=== PATIENT | female | born 1935 | race Hispanic/Latino ===

== ENCOUNTER 2019-01-25 10:38 | Observation (INO) | payer MEDICARE ==
[~2019-01-25] VITALS: Ht 157.5 cm; Wt 68.1 kg
--- OUTSIDE RECORDS SUMMARY | 2019-01-25 10:40 | XMS REPORT | Clinical Summary ---
Author Author [facility] Organization [facility] Address Unknown Phone Unavailable Care Team Providers Care Aluminum Welder Name Role Phone Ren Blanca MD PCP Allergies Comments Active Allergy Reactions Severity Noted Date Iodine 11/20/2015 Iodine And Iodide Swelling 01/16/2016 Containing Products Medications End Date Status Medication Sig Dispensed Refills Start Date Active olmesartan (BENICAR) 40 Take 40 mg by 0 MG tablet mouth daily. Active multivitamin (THERAGRAN) Take 1 tablet 0 tablet by mouth daily. Active simvastatin (ZOCOR) 20 MG Take 20 mg by 0 tablet mouth nightly. Active iwbcciwm-nghqflwer-IG Administer 3 10 mL 0 (CORTISPORIN) otic drops into 6 solutionIndications: both ears 4 Otalgia of both ears (four) times a day. Active ciprofloxacin HCl (CIPRO) Take 500 mg 0 500 MG tablet by mouth 2 (two) times a day. Active escitalopram (LEXAPRO) 10 TAKE ONE 30 tablet 0 MG tablet TABLET BY 6 MOUTH ONE TIME DAILY Active insulin lispro INJECT BY 9 mL 1 protamin-lispro (HumaLOG SUBCUTANEOUS 6 Mix 75-25 KwikPen) 100 ROUTE 15 unit/mL (75-25) insulin UNITS IN THE penIndications: Type 2 MORNING AND diabetes mellitus with 10 UNITS AT B hyperglycemia (HCC) ED TIME Active BD ULTRA-FINE GWEN PEN Use twice a 100 each 5 NEEDLES 32 gauge x 32" day 6 needle Active Problems Problem Noted Date Urinary retention 12/05/2015 CKD (chronic kidney disease) stage 3, GFR 30-59 ml/min 12/05/2015 Overview: 10/01 Cr 1.2, GF 42 Diabetes mellitus 11/20/2015 Vitamin D deficiency 11/20/2015 Overview: Vit D 16 Hyperlipidemia 11/20/2015 Depressive disorder 11/20/2015 Neuropathy 11/20/2015 Overview: feet Cataract 11/20/2015 Overview: Eye center [facility] Vitreous hemorrhage 11/20/2015 Overview: left eye Essential hypertension 11/20/2015 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, Nuclear stress test 01/28 wnl Osteopenia 11/20/2015 Overview: 11/19/14 DEXA : - 1.5 ( FU 2 yrs) Heart murmur 11/20/2015 Overview: mild on ECHO 01/28 Urinary incontinence 11/20/2015 Chronic UTI 11/20/2015 Otalgia of both ears 11/20/2015 Gait instability 11/20/2015 Immunizations Name Dates Previously Given Next Due Influenza, Unspecified 05/23/2015 Pneumococcal Conjugate 05/23/2015 13-Valent Pneumococcal, Unspecified 09/17/1999 Family History Medical History Relation Name Comments Diabetes Father Coronary artery disease Mother Hypertension Mother Relation Name Status Comments Father Mother Social History Date Tobacco Use Types Packs/Day Years Used Never Smoker Alcohol Use Drinks/Week oz/Week Comments No Sex Assigned at Date Recorded Not on file Industry Job Start Date Occupation Not on file Not on file Not on file Travel End Travel History Travel Start No recent travel history available. Last Filed Vital Signs Not on file Plan of Treatment Health Maintenance Due Date Last Done Comments DXA SCAN 1935 SHINGLES VACCINES (#1) 1985 65+ PNEUMOCOCCAL VACCINE 05/23/2016 05/23/2015, 09/17/1999 (2 of 2 - PPSV23) DIABETIC FOOT EXAM 11/19/2016 11/20/2015 DIABETIC RETINAL EYE EXAM 04/16/2017 04/16/2015 INFLUENZA VACCINE 03/16/2019 05/23/2015, 05/23/2015 Results Not on fileafter 01/24/2018 Insurance Type Payer Benefit Subscriber ID Effective Phone Address Plan / Dates Group Medicare MEDICARE MEDICARE xxxxxxxxxx 2000- JAS[place], PART A AND Present [place] B HMO AETNA AETNA xxxxxxxxxx 2005- HMO,POS,EP Present O, [facility] Advance Directives Patient has advance care planning documents on file. For more information, nathan [email or web address] contact: Eren Short [phone] [place] [address]
--- OUTSIDE RECORDS SUMMARY | 2019-01-25 10:40 | XMS REPORT | Clinical Summary ---
Author Author B[facility] Organization [facility] Address Unknown Phone Unavailable Care Team Providers Care Polystyrene Molding Machine Tender Name Role Phone Yazan Garay MD PCP Allergies Comments Active Allergy Reactions Severity Noted Date Ciprofloxacin 10/30/2017 Iodine And Iodide Swelling 12/04/2015 Containing Products Medications End Date Status Medication Sig Dispensed Refills Start Date Active olmesartan (BENICAR) 20 Take 20 mg by 0 MG tablet mouth daily. Active escitalopram oxalate Take 10 mg by 0 (LEXAPRO) 10 MG tablet mouth daily. Active insulin lispro (HUMALOG) Inject 0 100 unit/mL injection subcutaneousl y 3 (three) times daily before meals. Active amLODIPine (NORVASC) 2.5 Take 2.5 mg 0 MG tablet by mouth daily. Active atorvastatin (LIPITOR) 10 Take 10 mg by 0 MG tablet mouth daily. Active Problems Not on file Social History Date Tobacco Use Types Packs/Day [...] Health Maintenance Due Date Last Done Comments INFLUENZA VACCINE 05/16/2018 Results Not on fileafter 01/24/2018 Insurance Payer Benefit Subscriber ID Type Phone Address Plan / Group MEDICARE MEDICARE A xxxxxxxxxx Medicare B HUMANA - MEDICARE MGD HUMANA xxxxxxxxx [facility] MEDICARE Contracted ADV MEDICAID MEDICAID xxxxxxxxx Medicaid OF [place]
--- OUTSIDE RECORDS SUMMARY | 2019-01-25 10:41 | XMS REPORT | Continuity of Care Document ---
Author Author [facility] Organization Interface Address Unknown Phone Unavailable Problems Problem Status Onset Date Classification Date Reported Comments Source DX: R33.9=RETENTION OF URINE, UNSPECIFIE Active 12/31/2016 [facility] Discharge Diagnosis: Acute urinary retention 10/02/2016 10/05/2016 [facility] URINARY SYMPTOMS Active 10/02/2016 [facility] URINARY SYMPTOMS Active 10/02/2016 [facility] Discharge Diagnosis: Acute lower urinary tract infection 09/29/2016 10/02/2016 [facility] LOWER PAIN Active 09/29/2016 [facility] LOWER PAIN Active 09/29/2016 [facility] UNABLE TO URINE/PAIN IN ANUS Active 09/24/2016 [facility] UNABLE TO URINE/PAIN IN ANUS Active 09/24/2016 [facility] Discharge Diagnosis: Accidental fall 05/22/2016 05/25/2016 [facility] Discharge Diagnosis: Broken rib 05/22/2016 05/25/2016 [facility] Discharge Diagnosis: Broken clavicle 05/22/2016 05/25/2016 [facility] SHOULDER PAIN Active 05/22/2016 [facility] Z12.31 - ENCNTR SCREEN MAMMOGRAM FOR MS Active 05/13/2016 [facility] [place] UROSEPSIS Active 12/21/2011 [facility] UROSEPSIS, CYSTITIS Active 12/21/2011 [facility] ABD PAIN Active 12/21/2011 [facility] HTN - Hypertension Inactive Problem 12/26/2011 [facility] OA - Osteoarthritis Active Problem 12/26/2011 [facility] 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 Active Problem 09/17/2012 [facility] [place] Depression Active Problem 09/17/2012 [facility] [place] Diabetes mellitus Active Problem 09/17/2012 [facility] [place] HTN - Hypertension Inactive Problem 09/17/2012 [facility] [place] OA - Osteoarthritis Active Problem 09/17/2012 [facility] [place] 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 Active Problem 10/21/2018 [facility] [place] Depression Active Problem 10/21/2018 [facility] Diabetes mellitus Active Problem 10/21/2018 [facility] OA - Osteoarthritis Active Problem 10/21/2018 [facility] HTN (<span ID="[id number]</span>) Active Problem 10/21/2018 [facility] UTI (<span ID="[id number]">Confirmed</span>) Active Problem 10/21/2018 [facility] Diabetes Active Problem 01/03/2017 [facility] CYSTITIS NOS Active [facility] 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 [facility] Medications Medication Details Route Status Patient Instructions Ordering Provider Order Date Source Levofloxacin 500 MG Oral Tablet [Levaquin] 500 mg=1 tab, PO, Q24H, X 7 day, # 7 tab, 0 Refill(s) Active 09/29/2016 [facility] Levaquin 500 mg, 100 mL, Route: IVPB, Drug form: SOLN, ONCE, Dosing Weight 60, kg, Start date: 09/29/16 9:08: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, Stop date: 09/29/16 9:08:00 CSTNotes: (Same as:Levaquin) Inactive 09/29/2016 [facility] tramadol hydrochloride 50 MG Oral Tablet [Ultram] 1 - 2 tabs, PO, Q4-6H, PRN as needed for pain, # 16 tab, 0 Refill(s) No Longer Active 09/24/2016 [facility] nitrofurantoin macrocrystals 100 mg oral capsule (Macrodantin) 100 mg=1 cap, PO, Q8H, X 7 day, # 21 cap, 0 Refill(s) Active 09/24/2016 [facility] Saline Flush 0.9% 10 mL, Route: IVP, Drug Form: INJ, Dosing Weight 59.545, kg, PRN, PRN Line Flush, Start date: 09/24/16 6:06: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, Duration: 30 day, Stop date: 10/24/16 6:05:00 CSTNotes: (Same as: BD Posiflush) Inactive 09/24/2016 [facility] tramadol hydrochloride 50 MG Oral Tablet [Ultram] 50 mg=1 tab, PO, Q4H, PRN pain, X 5 day, # 30 tab, 0 Refill(s) Active 05/22/2016 [facility] Cipro 250 mg oral tablet 250 mg, 1 tab, PO, Q12H, 14 tab, Substitution Allowed PO Active [facility] 12/24/2011 [facility] Pyridium 100 mg oral tablet 100 mg, 1 tab, PO, TID, 21 tab, Substitution Allowed, TAB PO Active [facility] 12/24/2011 [facility] NovoLog Mix 70/30 FlexPen 20 unit, 0.2 mL, Route: SUB-Q, Drug form: INJ, BID-Before Meals, Start date: 12/23/11 16:30:00, Duration: 30 day, Stop date: 01/22/12 7:30:00 SUB-Q No Longer Active [facility] 12/23/2011 [facility] insulin isophane-insulin regular 70/30 20 unit, Route: SUB-Q, Drug form: SUSP, BID-Before Meals, Start date: 12/23/11 16:30:00, Duration: 30 day, Stop date: 01/22/12 7:30:00 SUB-Q No Longer Active [facility] 12/23/2011 [facility] Pyridium 100 mg, 1 tab, Route: PO, Drug form: TAB, TID, Start date: 12/23/11 13:00:00, Duration: 30 day, Stop date: 01/22/12 9:00:00 PO No Longer Active [facility] 12/23/2011 [facility] Benicar 20 mg, 1 tab, Route: PO, Drug form: TAB, Daily, Start date: 12/23/11 9:00:00, Duration: 30 day, Stop date: 01/21/12 9:00:00 PO No Longer Active [facility] 12/23/2011 [facility] Lexapro 10 mg, 1 tab, Route: PO, Drug form: TAB, Daily, Start date: 12/23/11 9:00:00, Duration: 30 day, Stop date: 01/21/12 9:00:00 PO No Longer Active [facility] 12/23/2011 [facility] Lipitor 80 mg, 2 tab, Route: PO, Drug form: TAB, Bedtime, Start date: 12/22/11 21:00:00, Duration: 30 day, Stop date: 01/20/12 21:00:00 PO No Longer Active [facility] 12/23/2011 [facility] cefepime 1 gm, Route: IVPB, [id number], Start date: 12/22/11 13:00:00, Duration: 30 day, Stop date: 01/21/12 1:00:00 IVPB No Longer Active [facility] 12/22/2011 [facility] Dextrose 50% Syringe 12.5 gm, 25 mL, Route: IVP, Drug Form: INJ, PRN, PRN Blood Glucose Results, Start date: 12/22/11 9:53:00, Duration: 30 day, Stop date: 01/21/12 9:52:00 IVP No Longer Active [facility] 12/22/2011 [facility] glucagon 1 mg, Route: IM, Drug form: PDR/INJ, PRN, PRN Blood Glucose Results, Start date: 12/22/11 9:53:00, Duration: 30 day, Stop date: 01/21/12 9:52:00 IM No Longer Active [facility] 12/22/2011 [facility] insulin aspart 2 unit, 0.02 mL, Route: SUB-Q, Drug form: SOLN, Bedtime, PRN Blood Glucose Results, Start date: 12/22/11 9:53:00, Duration: 30 day, Stop date: 01/21/12 9:52:00 SUB-Q No Longer Active [facility] 12/22/2011 [facility] normal saline 0.9% IV 1,000 mL 1,000 mL, Rate: 100 ml/hr, Infuse over: 10 hr, Route: IV, Dosing Weight 75 kg, Total Volume: 1,000, Start date: 12/22/11 7:24:00, Duration: 30 day, Stop date: 01/21/12 7:23:00 IV No Longer Active [facility] 12/22/2011 [facility] atropine 0.5 mg, 5 mL, Route: IVP, Drug form: INJ, PRN, PRN Bradycardia, Start date: 12/22/11 4:37:00, Duration: 30 day, Stop date: 01/21/12 4:36:00 IVP No Longer Active [facility] 12/22/2011 [facility] nitroglycerin 0.4 mg sublingual tablet 0.4 mg, 1 tab, Route: SL, Drug form: TAB, Q5Min, PRN Chest Pain, Start date: 12/22/11 4:37:00, Duration: 30 day, Stop date: 01/21/12 4:36:00 SL No Longer Active [facility] 12/22/2011 [facility] Dextrose 50% Syringe 12.5 gm, 25 mL, Route: IVP, Drug Form: INJ, PRN, PRN Blood Glucose Results, Start date: 12/22/11 4:09:00, Duration: 30 day, Stop date: 01/21/12 4:08:00 IVP No Longer Active [facility] 12/22/2011 [facility] glucagon 1 mg, Route: IM, Drug form: PDR/INJ, PRN, PRN Blood Glucose Results, Start date: 12/22/11 4:09:00, Duration: 30 day, Stop date: 01/21/12 4:08:00 IM No Longer Active [facility] 12/22/2011 [facility] cefepime 1 gm, Route: IVPB, ONCE, Priority: STAT, Start date: 12/21/11 23:07:00, Stop date: 12/21/11 23:07:00 IVPB No Longer Active Nriagu 12/22/2011 [facility] influenza virus vaccine, inactivated 0.5 ml, Route: IM, Drug form: INJ, Start date: 08/24/06 9:00:00, Stop date: 08/24/06 9:00:00 IM No Longer Active Vaduganathan 08/24/2006 [facility] [place] Allergies, Adverse Reactions, Alerts Substance Category Reaction Severity Reaction type Status Date Reported Comments Source Diflucan drug allergy Allergy Active [facility] [place] iodine topical drug allergy Allergy Active [facility] [place] Rocephin drug allergy Allergy Active [facility] [place] sulfa drugs drug allergy Allergy Active [facility] [place] Immunizations Immunization Date Given Site Status Last Updated Comments Source influenza virus vaccine, inactivated 08/24/2006 completed [facility] [place] influenza virus vaccine, inactivated 08/24/2006 Right deltoid completed [facility] Results Order Name Results Value Reference Range Date Interpretation Comments Source Chest 2 views DX Chest 2 views DX XR CHEST 2 VIEWS HISTORY: - r05 cough COMPARISON: None. FINDINGS: The lungs are clear. The heart and vascular markings are normal. No pleural abnormality. The bones are intact. Mild atheromatous calcification within the aorta. Prior sternotomy. IMPRESSION: No active process. SL: [id number] 10/18/2018 - - Read by: Josh Sepulveda MD Dictated Date/time: 10/18/18 14:14 Electronically Signed by: Josh Sepulveda MD 10/18/18 14:15 FINAL REPORT [facility] [place] Abdomen/Pelvis wo IV contrast CT Abdomen/Pelvis wo IV contrast CT Patient Name: CHESTER ALATORRE FELIX : 1935; Age: 81 years y/o Female MR: [id number] * I. COMPUTED TOMOGRAPHY SCAN OF THE ABDOMEN without contrast. * II. COMPUTED TOMOGRAPHY SCAN OF THE PELVIS without contrast HISTORY: Retention of urine - COMPARISON: 06/22/2007 * TECHNIQUE: I. COMPUTED TOMOGRAPHY SCAN OF THE ABDOMEN without contrast: Helical CT images were obtained on a multidetector computed tomography from the domes the diaphragms to the iliac crests. Neither oral or intravenous contrast was administered. II. COMPUTED TOMOGRAPHY SCAN OF THE PELVIS without contrast: Helical CT images were obtained on a multidetector computed tomography from the iliac crests to the pubic symphysis. Neither oral or intravenous contrast was administered. Coronal and sagittal reconstructions were obtained. CT radiation dose DLP: 741 mGy-cm FINDINGS: There is no free intraperitoneal gas, intra-abdominal abscess, ascites, or other fluid collection. The liver, spleen, pancreas, and adrenal glands are normal in appearance. The kidneys are normal in size without hydronephrosis. No calculi are seen. No focal lesions are seen involving the kidneys on this limited noncontrast study. Evaluation of the solid organs is limited due to lack of intravenous contrast. There is moderate sigmoid diverticulosis without evidence of diverticulitis. The gastrointestinal structures are otherwise unremarkable. There is no evidence of obstruction or ileus. The appendix is not definitely demonstrated. 2 small densities are noted adjacent to the cecum, slightly related to a prior appendectomy. Please correlate with surgical history. There is no evidence of appendicitis. Evaluation of the gastrointestinal structures is limited due to lack of oral contrast. No mass or adenopathy is seen within the abdomen or pelvis. There is no ascites or other fluid collection. Extensive atherosclerotic calcifications involving the abdominal aorta and iliac arteries. The aorta is normal in caliber. The uterus is not visualized. Presumably, the patient has had a prior hysterectomy. There is a Ibanez catheter within the urinary bladder. The bladder is decompressed. The visualized lung bases are clear. There is mild scarring in the lingula. There are no pleural effusions. The heart is normal in size. There is no pericardial effusion. There are extensive coronary artery calcifications. There are poststernotomy changes. There are mild scattered degenerative changes involving the visualized spine. There are old healed left rib fractures. The osseous structures are otherwise unremarkable. No blastic or destructive lesions are seen. IMPRESSION: 1. No evidence of an acute intra-abdominal process. 2. Moderate sigmoid diverticulosis without evidence of diverticulitis. 3. The appendix is not visualized. Small densities are noted adjacent the cecum, possibly related to a prior appendectomy. Please correlate with surgical history. 4. Atherosclerosis including coronary artery calcifications. 5. Poststernotomy changes. 6. Ibanez catheter within the urinary bladder. The bladder is decompressed. SL: [id number] 12/31/2016 - - Read by: Antwon Guido MD Dictated Date/time: 12/31/16 15:37 Electronically Signed by: Antwon Guido MD 12/31/16 15:49 FINAL REPORT [facility] URINE AND STOOL UA Leuk Est Small *ABN* (10/02/16 2:50 PM) Negative 10/02/2016 [facility] URINE AND STOOL UA WBC 6-10 /HPF None Seen /HPF 10/02/2016 [facility] URINE AND STOOL UA RBC 0-2 /HPF 0 - 2 10/02/2016 [facility] URINE AND STOOL UA Bacteria Occasional /HPF None Seen /HPF 10/02/2016 [facility] URINE AND STOOL UA Color Yellow *NA* (10/02/16 2:50 PM) Yellow 10/02/2016 [facility] URINE AND STOOL UA Sq Epi Rare /LPF Few /LPF 10/02/2016 [place] URINE AND STOOL UA Blood Negative (10/02/16 2:50 PM) Negative 10/02/2016 [place] URINE AND STOOL UA Urobilinogen 0.2 EU/dL 0.1 - 1.0 10/02/2016 [facility] URINE AND STOOL UA Nitrite Negative (10/02/16 2:50 PM) Negative 10/02/2016 [facility] URINE AND STOOL UA Bili Negative *NA* (10/02/16 2:50 PM) Negative 10/02/2016 [facility] URINE AND STOOL UA Ketones Negative *NA* (10/02/16 2:50 PM) Negative 10/02/2016 [facility] URINE AND STOOL UA Glucose Negative (10/02/16 2:50 PM) Negative 10/02/2016 [facility] URINE AND STOOL UA Spec Grav <=1.005
*NA*
(10/02/16 2:50 PM) <=1.030 10/02/2016 [facility] URINE AND STOOL UA pH 6.0 5.0 - 8.0 10/02/2016 [facility] URINE AND STOOL UA Turbidity Clear (10/02/16 2:50 PM) Clear 10/02/2016 [facility] URINE AND STOOL UA Protein Negative (10/02/16 2:50 PM) Negative [facility] e[facility] 54 mL/min/1.73m2 09/29/2016 Result Comment: The eGFR is calculated using the CKD-EPI formula. In most young, healthy individuals the eGFR will be >90 mL/min/1.73m2. The eGFR declines with age. An eGFR of 60-89 may be normal in some populations, particularly the elderly, for whom the CKD-EPI formula has not been extensively validated. Use of the eGFR is not recommended in the following populations: Individuals with unstable creatinine concentrations, including patients and those with serious co-morbid conditions. Patients with extremes in muscle mass or diet. The data above are obtained from the National Kidney Disease Education Program (NKDEP) which additionally recommends that when the eGFR is used in patients with extremes of body mass index for purposes of drug dosing, the eGFR should be multiplied by the estimated BMI. [place] CHEM PANEL Alk Phos 88 unit/L 39 - 136 09/29/2016 [place] CHEM PANEL BUN 14 mg/dL 7 - 22 09/29/2016 [place] CHEM PANEL Glucose Lvl 194 mg/dL 70 - 99 09/29/2016 [place] CHEM PANEL Albumin Lvl 3.9 g/dL 3.5 - 5.0 09/29/2016 [place] CHEM PANEL Calcium Lvl 9.1 mg/dL 8.5 - 10.5 09/29/2016 [facility] [place] CHEM PANEL Bili Total 0.7 mg/dL 0.2 - 1.3 09/29/2016 [facility] CHEM PANEL Total Protein 8.9 g/dL 6.4 - 8.4 09/29/2016 [facility] CHEM PANEL ASPARTATE TRANSAMINASE 13 unit/L 0 - 37 09/29/2016 [place] CHEM PANEL Chloride Lvl 104 meq/L 95 - 109 09/29/2016 [place] CHEM PANEL CO2 24 meq/L 24 - 32 09/29/2016 [place] CHEM PANEL Creatinine Lvl 0.98 mg/dL 0.50 - 1.40 09/29[facility]2016 [facility] Sodium Lvl 138 meq/L 135 - 145 09/29/2016 [facility] Potassium Lvl 4.5 meq/L 3.5 - 5.1 09/29/2016 [facility] CHEM PANEL ALANINE AMINOTRANSFERASE 19 unit/L 0 - 65 09/29/2016 [facility] CHEM PANEL Globulin 5.0 g/dL 2.7 - 4.2 09/29/2016 [facility] CHEM PANEL AGAP 14.5 meq/L 10.0 - 20.0 09/29/2016 [facility] CHEM PANEL B/C Ratio 14 6 - 25 09/29/2016 [facility] CHEM PANEL A/G Ratio 0.8 0.7 - 1.6 09/29/2016 [facility] HEMATOLOGY Eosinophils # 0.1 K/CMM 0.0 - 0.5 09/29/2016 [facility] HEMATOLOGY Basophils 0.4 % 0.0 - 1.0 09/29/2016 [facility] HEMATOLOGY Segs-Bands # 6.1 K/CMM 1.5 - 8.1 09/29/2016 [facility] HEMATOLOGY Monocytes 8.6 % 2.0 - 12.0 09/29/2016 [facility] HEMATOLOGY Eosinophils 0.8 % 0.0 - 4.0 09/29/2016 [facility] HEMATOLOGY Lymphocytes # 0.8 K/CMM 1.0 - 5.5 09/29/2016 [facility] HEMATOLOGY Segs 79.8 % 45.0 - 75.0 09/29/2016 [facility] HEMATOLOGY Lymphocytes 10.4 % 20.0 - 40.0 09/29/2016 [facility] HEMATOLOGY Monocytes # 0.7 K/CMM 0.0 - 0.8 09/29/2016 [facility] HEMATOLOGY RDW 13.5 % 11.5 - 14.5 09/29/2016 [facility] HEMATOLOGY Platelet 187 K/CMM 133 - 450 09/29/2016 [facility] HEMATOLOGY MPV 9.3 fL 7.4 - 10.4 09/29/2016 [facility] HEMATOLOGY MCHC 34.1 g/dL 32.0 - 36.0 09/29/2016 [facility] HEMATOLOGY RBC X 10x6 3.92 M/CMM 4.20 - 5.40 09/29/2016 [facility] HEMATOLOGY WBC X 10x3 7.7 K/CMM 3.7 - 10.4 09/29/2016 [facility] MCH 31.0 pg 27.0 - 31.0 09/29/2016 [facility] HEMATOLOGY MCV 91.0 fL 80.0 - 98.0 09/29/2016 [facility] Hct 35.7 % 36.0 - 48.0 09/29/2016 [facility] HEMATOLOGY Hgb 12.1 g/dL 12.0 - 16.0 09/29/2016 [facility] URINE AND STOOL UA RBC None Seen (09/29/16 8:37 AM) 0 - 2 09/29/2016 [facility] URINE AND STOOL UA WBC 3-5 /HPF None Seen /HPF 09/29/2016 [facility] URINE AND STOOL UA Ketones Trace *ABN* (09/29/16 8:37 AM) Negative 09/29/2016 [facility] URINE AND STOOL UA Bacteria None Seen (09/29/16 8:37 AM) None Seen 09/29/2016 [facility] URINE AND STOOL UA Sq Epi Rare /LPF Few /LPF 09/29/2016 [facility] URINE AND STOOL Micro? Performed (09/29/16 8:37 AM) 09/29/2016 [facility] URINE AND STOOL UA Leuk Est Small *ABN* (09/29/16 8:37 AM) Negative 09/29/2016 [facility] URINE AND STOOL UA Nitrite Negative (09/29/16 8:37 AM) Negative 09/29/2016 [facility] URINE AND STOOL UA Urobilinogen 0.2 EU/dL 0.1 - 1.0 09/29/2016 [facility] URINE AND STOOL UA Blood Trace *ABN* (09/29/16 8:37 AM) Negative 09/29/2016 [facility] URINE AND STOOL UA Bili Negative *NA* (09/29/16 8:37 AM) Negative 09/29/2016 [facility] URINE AND STOOL UA Turbidity Clear (09/29/16 8:37 AM) Clear 09/29/2016 [facility] URINE AND STOOL UA Color Yellow *NA* (09/29/16 8:37 AM) Yellow 09/29/2016 [facility] URINE AND STOOL UA Glucose Negative (09/29/16 8:37 AM) Negative 09/29/2016 [facility] URINE AND STOOL UA Protein Negative (09/29/16 8:37 AM) Negative 09/29/2016 [facility] URINE AND STOOL UA pH 6.5 5.0 - 8.0 09/29/2016 [facility] URINE AND STOOL UA Spec Grav 1.010 <=1.030 09/29/2016 [facility] CARDIAC ENZYMES CK-MB INDEX 1.8 0.0 - 2.5 09/24/2016 [facility] CARDIAC ENZYMES Total CK 114 unit/L 12 - 191 09/24/2016 [facility] CARDIAC ENZYMES Troponin-I null 0.00 - 0.40 09/24/2016 [facility] CARDIAC ENZYMES CK MB 2.1 ng/mL 0.5 - 3.6 09/24/2016 [facility] CHEM PANEL Magnesium Lvl 2.1 mg/dL 1.8 - 2.4 09/24/2016 [facility] CHEM PANEL Lipase Lvl 82 unit/L 73 - 393 09/24/2016 [facility] ELECTROLYTES CO2 24 meq/L 24 - 32 09/24/2016 [facility] ELECTROLYTES Chloride Lvl 106 meq/L 95 - 109 09/24/2016 [facility] ELECTROLYTES Potassium Lvl 3.8 meq/L 3.5 - 5.1 09/24/2016 [facility] ELECTROLYTES Sodium Lvl 139 meq/L 135 - 145 09/24/2016 [facility] ELECTROLYTES Creatinine Lvl 0.93 mg/dL 0.50 - 1.40 09/24/2016 [facility] ELECTROLYTES eGFR 58 mL/min/1.73m2 09/24/2016 Result Comment: The eGFR is calculated using the CKD-EPI formula. In most young, healthy individuals the eGFR will be >90 mL/min/1.73m2. The eGFR declines with age. An eGFR of 60-89 may be normal in some populations, particularly the elderly, for whom the CKD-EPI formula has not been extensively validated. Use of the eGFR is not recommended in the following populations: Individuals with unstable creatinine concentrations, including patients and those with serious co-morbid conditions. Patients with extremes in muscle mass or diet. The data above are obtained from the National Kidney Disease Education Program (NKDEP) which additionally recommends that when the eGFR is used in patients with extremes of body mass index for purposes of drug dosing, the eGFR should be multiplied by the estimated BMI. [facility] ELECTROLYTES A/G Ratio 0.7 0.7 - 1.6 09/24/2016 [facility] ELECTROLYTES Globulin 4.7 g/dL 2.7 - 4.2 09/24/2016 [facility] ELECTROLYTES ASPARTATE TRANSAMINASE 12 unit/L 0 - 37 09/24/2016 [facility] ELECTROLYTES Total Protein 8.2 g/dL 6.4 - 8.4 09/24/2016 [facility] ELECTROLYTES B/C Ratio 19 6 - 25 09/24/2016 [facility] ELECTROLYTES Bili Total 0.3 mg/dL 0.2 - 1.3 09/24/2016 [facility] ELECTROLYTES AGAP 12.8 meq/L 10.0 - 20.0 09/24/2016 [facility] ELECTROLYTES Calcium Lvl 8.6 mg/dL 8.5 - 10.5 09/24/2016 [facility] ELECTROLYTES Alk Phos 90 unit/L 39 - 136 09/24/2016 [facility] ELECTROLYTES Albumin Lvl 3.5 g/dL 3.5 - 5.0 09/24/2016 [facility] ELECTROLYTES BUN 18 mg/dL 7 - 22 09/24/2016 [facility] ELECTROLYTES ALANINE AMINOTRANSFERASE 19 unit/L 0 - 65 09/24/2016 [facility] ELECTROLYTES Glucose Lvl 184 mg/dL 70 - 99 09/24/2016 [facility] HEMATOLOGY Basophils 0.4 % 0.0 - 1.0 09/24/2016 [facility] HEMATOLOGY Eosinophils 1.2 % 0.0 - 4.0 09/24/2016 [facility] HEMATOLOGY Eosinophils # 0.1 K/CMM 0.0 - 0.5 09/24/2016 [facility] HEMATOLOGY Segs-Bands # 3.9 K/CMM 1.5 - 8.1 09/24/2016 [facility] HEMATOLOGY Lymphocytes # 1.1 K/CMM 1.0 - 5.5 09/24/2016 [facility] HEMATOLOGY Monocytes # 0.5 K/CMM 0.0 - 0.8 09/24/2016 [facility] Segs 69.7 % 45.0 - 75.0 09/24/2016 [facility] Lymphocytes 19.1 % 20.0 - 40.0 09/24/2016 [facility] Monocytes 9.6 % 2.0 - 12.0 09/24/2016 [facility] aPTT 30.3 s 22.9 - 35.8 09/24/2016 [facility] INR 0.92 0.85 - 1.17 09/24/2016 [facility] PROTIME 12.6 s 12.0 - 14.7 09/24/2016 [facility] WBC X 10x3 5.6 K/CMM 3.7 - 10.4 09/24/2016 [facility] Hgb 11.4 g/dL 12.0 - 16.0 09/24/2016 [facility] RBC X 10x6 3.69 M/CMM 4.20 - 5.40 09/24/2016 [facility] MCV 90.6 fL 80.0 - 98.0 09/24/2016 [facility] MCH 30.9 pg 27.0 - 31.0 09/24/2016 [facility] Hct 33.5 % 36.0 - 48.0 09/24/2016 [facility] MCHC 34.1 g/dL 32.0 - 36.0 09/24/2016 [facility] MPV 8.8 fL 7.4 - 10.4 09/24/2016 [facility] RDW 13.4 % 11.5 - 14.5 09/24/2016 [facility] Platelet 188 K/CMM 133 - 450 09/24/2016 [facility] URINE AND STOOL UA RBC None Seen (09/24/16 6:20 AM) 0 - 2 09/24/2016 [facility] URINE AND STOOL UA Bacteria Occasional /HPF None Seen /HPF 09/24/2016 [facility] URINE AND STOOL UA WBC 3-5 /HPF None Seen /HPF 09/24/2016 [facility] URINE AND STOOL UA Leuk Est Small *ABN* (09/24/16 6:20 AM) Negative 09/24/2016 [facility] URINE AND STOOL UA Sq Epi Rare /LPF Few /LPF 09/24/2016 [facility] [place] URINE AND STOOL UA Spec Grav 1.010 <=1.030 09/24/2016 [place] URINE AND STOOL UA Protein Trace *ABN* (09/24/16 6:20 AM) Negative 09/24/2016 [place] URINE AND STOOL UA pH 5.5 5.0 - 8.0 09/24/2016 [place] URINE AND STOOL UA Ketones Negative *NA* (09/24/16 6:20 AM) Negative 09/24/2016 [place] URINE AND STOOL UA Blood Moderate *ABN* (09/24/16 6:20 AM) Negative 09/24/2016 [place] URINE AND STOOL UA Bili Negative *NA* (09/24/16 6:20 AM) Negative 09/24/2016 [place] URINE AND STOOL UA Nitrite Negative (09/24/16 6:20 AM) Negative 09/24/2016 [place] URINE AND STOOL UA Urobilinogen 0.2 EU/dL 0.1 - 1.0 09/24/2016 [place] URINE AND STOOL UA Glucose 100 mg/dL Negative mg/dL 09/24/2016 [place] URINE AND STOOL UA Color Yellow *NA* (09/24/16 6:20 AM) Yellow 09/24/2016 [place] URINE AND STOOL UA Turbidity Clear (09/24/16 6:20 AM) [facility] Carotid artery Doppler bilat US EXAM: Ultrasound carotid HISTORY: Bruit left carotid artery COMPARISON: Ultrasound 08/20/2006 TECHNIQUE: Tellez-scale, color Doppler and spectral Doppler of the carotid arteries was performed. Any reported ICA stenoses indirectly reference the distal internal carotid diameter as the denominator for the stenosis measurement, utilizing consensus panel criteria. FINDINGS: RIGHT: Moderate plaque in the carotid bulb and internal carotid artery. ICA PSV 112 cm/sec CCA PSV 88 cm/sec ICA/CCA ratio 1.3 Vertebral flow is antegrade. External carotid artery is patent. LEFT: Moderate plaque in the carotid bulb and internal carotid artery. ICA PSV 117 cm/sec CCA PSV 101 cm/sec ICA/CCA ratio 1.2 Vertebral flow is antegrade. External carotid artery is patent. IMPRESSION: Patent carotid arteries without hemodynamically significant stenosis seen. SL: [id number] 06/03/2016 - - Read by: Misael Glover MD Dictated Date/time: 06/03/16 16:14 Electronically Signed by: Misael Glover MD 06/03/16 16:17 FINAL REPORT ANGEL [place] Bone Density DXA [employer] MA Bone Density DXA [employer] MA - Bone Density [employer] MA BONE DENSITY EVALUATION: 06/03/2016 CLINICAL DATA: N95.9 Menopausal and perimenopausal disorder. FINDINGS: Bone density evaluation was performed 06/03/2016 on the AP L1-L4 region of spine using a Hologic unit. The BMD average for the exam is 1.225 g/cm2. The T-score is 1.60 and the Z-score is 4.30. This matches the World Health Organization's criteria for normal bone density and places the patient within normal limits of fracture risk. An additional bone density evaluation was performed 06/03/2016 on the right femur neck using a Hologic unit. The BMD average for the exam is 0.775 g/cm2. The T-score is -0.70 and the Z-score is 1.50. This matches the World Health Organization's criteria for normal bone density and places the patient within normal limits of fracture risk. An additional bone density evaluation was performed 06/03/2016 on the right total femur area using a Hologic unit. The BMD average for the exam is 0.899 g/cm2. The T-score is -0.40 and the Z-score is 1.60. This matches the World Health Organization's criteria for normal bone density and places the patient within normal limits of fracture risk. An additional bone density evaluation was performed 06/03/2016 on the left femur neck using a Hologic unit. The BMD average for the exam is 0.708 g/cm2. The T- score is -1.30 and the Z-score is 0.90. This matches the World Health Organization's criteria for osteopenia and places the patient at a medium risk for fracture. An additional bone density evaluation was performed 06/03/2016 on the left total femur area using a Hologic unit. The BMD average for the exam is 0.874 g/cm2. The T-score is -0.60 and the Z-score is 1.40. This matches the World Health Organization's criteria for normal bone density and places the patient within normal limits of fracture risk. IMPRESSION: OSTEOPENIA Patient is at medium risk for fracture. Professional services are provided by the [facility] Division of Diagnostic Imaging. This exam was dictated and interpreted by [id number] for ROSIO Francis. Mark Schmidt M.D., cm/penrad:06/04/2016 09:05:28 Mathematical Physicist: Lissa Guido [facility] [place] 06/03/2016 - - Read by: Miguel Angel Schmidt III, MD Dictated Date/time: 06/04/16 09:05 Electronically Signed by: Miguel Angel Schmidt III, MD 06/04/16 09:05 FINAL REPORT ROSIO [facility] Digital Mammo Screen Edward MA w agnes Digital Mammo Screen Edward MA w agnes - DIGITAL MAMMO SCREEN EDWARD MA W AGNES BILATERAL DIGITAL SCREENING MAMMOGRAM 3D/2D WITH CAD: 06/03/2016 CLINICAL: Routine. 2D digital mammographic images and 3D digital tomosynthesis images were obtained in the CC and MLO projections. Current study was evaluated with a Computer Aided Detection (CAD) system. No prior exams were available for comparison. The tissue of both breasts is almost entirely fat. Exam limited by patient's ability to cooperate due to recent fracture. Best images possible obtained. There is a 0.6 cm oval mass with an indistinct margin in the right breast at 11 o'clock middle depth 7 cm from the nipple. No other significant masses, calcifications, or other findings are seen in either breast. IMPRESSION: INCOMPLETE: NEEDS ADDITIONAL IMAGING EVALUATION The 0.6 cm oval mass in the right breast is indeterminate. Professional services are provided by the [facility] Division of Diagnostic Imaging. Mark Schmidt M.D., cm/penrad:06/04/2016 08:58:55 Mathematical Physicist: Lissa Guido [facility] This exam was dictated and interpreted by [id number] for ROSIO Francis. letter sent: Additional Imaging Mammogram BI-RADS: 0 Indeterminate 06/03/2016 - - Read by: Miguel Angel Schmidt III, MD Dictated Date/time: 06/04/16 08:58 Electronically Signed by: Miguel Angel Schmidt III, MD 06/04/16 08:58 FINAL REPORT ROSIO Bean Chest 2 views DX Chest 2 views DX Patient Name: CHESTER FELIX : 1935; Age: 80 years y/o Female MR: [id number] Study: Chest 2 views DX 05/22/2016 3:06 PM CDT Ordering Physician: Clinical Indication: Cough and fever; clavical fx left Comparison: None Two-view chest Prior sternotomy. Heart size normal. No pleural effusion or pneumothorax. Old left rib fracture deformities. Nondisplaced acute appearing linear left clavicular fracture. Left 4th 5th and 6th lateral rib fracture deformities which are probably chronic. IMPRESSION: Left clavicular fracture. Likely chronic left rib fractures. No other acute finding. SL: [id number] 05/22/2016 - - Read by: Pranav Menchaca MD Dictated Date/time: 05/22/16 15:28 Electronically Signed by: Pranav Menchaca MD 05/22/16 15:29 FINAL REPORT [facility] BEDSIDE GLUCOSE TESTING Gluc POC Lifscn 155 mg/dL 70 - 99 12/24/2011 [place] 1Interpretive Data: Upper Reportable Limit: 200 mg/dL. [facility] BEDSIDE GLUCOSE TESTING Comment1 Notify MADISON 12/24/2011 NA [facility] BEDSIDE GLUCOSE TESTING Gluc POC Lifscn 186 mg/dL 70 - 99 12/24/2011 [place] 2Interpretive Data: Upper Reportable Limit: 200 mg/dL. [facility] BEDSIDE GLUCOSE TESTING Comment1 Notify MADISON 12/24/2011 NA [facility] CHEMISTRY Calcium Lvl 8.2 mg/dL 8.5 - 10.5 12/24/2011 LOW [facility] CHEMISTRY AGAP 16.1 meq/L 10.0 - 20.0 12/24/2011 Normal [facility] CHEMISTRY CO2 21 meq/L 24 - 32 12/24/2011 LOW [facility] CHEMISTRY Chloride Lvl 109 meq/L 95 - 109 12/24/2011 Normal [facility] CHEMISTRY Potassium Lvl 4.1 meq/L 3.5 - 5.1 12/24/2011 Normal [facility] CHEMISTRY Sodium Lvl 142 meq/L 135 - 145 12/24/2011 Normal [facility] CHEMISTRY Creatinine Lvl 0.9 mg/dL 0.5 - 1.4 12/24/2011 Normal [facility] CHEMISTRY BUN 13 mg/dL 7 - 22 12/24/2011 Normal [facility] CHEMISTRY Glucose Lvl 121 mg/dL 70 - 99 12/24/2011 [place] 4Interpretive Data: Adult reference range values reflect the clinical guidelinesof the [place] Diabetes Association. [facility] HEMATOLOGY Basophils # 0.0 K/CMM 0.0 - 0.2 12/24/2011 Normal [facility] HEMATOLOGY Eosinophils # 0.2 K/CMM 0.0 - 0.5 12/24/2011 Normal [facility] HEMATOLOGY Monocytes # 0.8 K/CMM 0.0 - 0.8 12/24/2011 Normal [facility] HEMATOLOGY Lymphocytes # 2.2 K/CMM 1.0 - 5.5 12/24/2011 Normal [facility] HEMATOLOGY Basophils 0.3 % 0.0 - 1.0 12/24/2011 Normal [facility] HEMATOLOGY Eosinophils 3.0 % 0.0 - 4.0 12/24/2011 Normal [facility] HEMATOLOGY Segs-Bands # 5.0 K/CMM 1.5 - 8.1 12/24/2011 Normal [facility] HEMATOLOGY Monocytes 10.0 % 2.0 - 12.0 12/24/2011 Normal [facility] HEMATOLOGY Lymphocytes 26.1 % 20.0 - 40.0 12/24/2011 Normal [facility] HEMATOLOGY Segs 60.6 % 45.0 - 75.0 12/24/2011 Normal [facility] HEMATOLOGY MPV 10.5 fL 7.4 - 10.4 12/24/2011 [facility] HEMATOLOGY RDW 13.7 % 11.5 - 14.5 12/24/2011 Normal [facility] HEMATOLOGY Platelet 189 K/CMM 133 - 450 12/24/2011 Normal [facility] HEMATOLOGY Hct 30.9 % 36.0 - 48.0 12/24/2011 [facility] HEMATOLOGY MCV 92.7 fL 81.0 - 99.0 12/24/2011 Normal [facility] HEMATOLOGY MCH 31.3 pg 27.0 - 31.0 12/24/2011 [facility] HEMATOLOGY MCHC 33.7 g/dL 32.0 - 36.0 12/24/2011 Normal [facility] HEMATOLOGY Hgb 10.4 g/dL 12.0 - 16.0 12/24/2011 LOW [facility] HEMATOLOGY RBC 3.33 M/CMM 4.20 - 5.40 12/24/2011 [facility] HEMATOLOGY WBC 8.3 K/CMM 3.7 - 10.4 12/24/2011 Normal [facility] BEDSIDE GLUCOSE TESTING Comment1 Notify GUILLAUME/ 12/24/2011 NA [facility] BEDSIDE GLUCOSE TESTING Gluc POC Lifscn 92 mg/dL 70 - 99 12/24/2011 Normal 3Interpretive Data: Upper Reportable Limit: 200 mg/dL. [facility] Microbiology Culture: Urine 12/23/2011 [facility] CHEMISTRY Hgb A1C 8.0 % 12/23/2011 [place] 7Interpretive Data: HbA1C% eAG(mg/dL) Interpretation 6.0 126 Very good control 6.5 140 Very good control 7.0 154 Good Control 7.5 169 Good Control 8.0 183 Marginal Control, take action to lower 8.5 197 Marginal Control, take action to lower 9.0 212 Poor Control, take action to lower 9.5 226 Poor Control, take action to lower10.0 240 Poor Control, take action to lower [facility] CHEMISTRY Chloride Lvl 107 meq/L 95 - 109 12/23/2011 Normal [facility] CHEMISTRY Sodium Lvl 140 meq/L 135 - 145 12/23/2011 Normal [facility] CHEMISTRY Potassium Lvl 4.3 meq/L 3.5 - 5.1 12/23/2011 Normal [facility] CHEMISTRY Calcium Lvl 8.3 mg/dL 8.5 - 10.5 12/23/2011 LOW [facility] CHEMISTRY AGAP 15.3 meq/L 10.0 - 20.0 12/23/2011 Normal [facility] CHEMISTRY CO2 22 meq/L 24 - 32 12/23/2011 LOW [facility] CHEMISTRY Creatinine Lvl 0.9 mg/dL 0.5 - 1.4 12/23/2011 Normal [facility] CHEMISTRY Glucose Lvl 251 mg/dL 70 - 99 12/23/2011 [place] 5Interpretive Data: Adult reference range values reflect the clinical guidelinesof the [place] Diabetes [employer]. [facility] CHEMISTRY BUN 14 mg/dL 7 - 22 12/23/2011 Normal [facility] HEMATOLOGY Segs 55.6 % 45.0 - 75.0 12/23/2011 Normal [facility] HEMATOLOGY Lymphocytes 25.2 % 20.0 - 40.0 12/23/2011 Normal [facility] HEMATOLOGY Basophils 0.3 % 0.0 - 1.0 12/23/2011 Normal [facility] HEMATOLOGY Eosinophils 3.5 % 0.0 - 4.0 12/23/2011 Normal [facility] HEMATOLOGY Monocytes 15.4 % 2.0 - 12.0 12/23/2011 [facility] HEMATOLOGY Eosinophils # 0.3 K/CMM 0.0 - 0.5 12/23/2011 Normal [facility] HEMATOLOGY Monocytes # 1.2 K/CMM 0.0 - 0.8 12/23/2011 [facility] HEMATOLOGY Segs-Bands # 4.2 K/CMM 1.5 - 8.1 12/23/2011 Normal [facility] HEMATOLOGY Lymphocytes # 1.9 K/CMM 1.0 - 5.5 12/23/2011 Normal [facility] HEMATOLOGY Basophils # 0.0 K/CMM 0.0 - 0.2 12/23/2011 Normal [facility] HEMATOLOGY MPV 9.5 fL 7.4 - 10.4 12/23/2011 Normal [facility] HEMATOLOGY Platelet 178 K/CMM 133 - 450 12/23/2011 Normal [facility] HEMATOLOGY RDW 13.6 % 11.5 - 14.5 12/23/2011 Normal [facility] HEMATOLOGY WBC 7.5 K/CMM 3.7 - 10.4 12/23/2011 Normal [facility] HEMATOLOGY RBC 3.29 M/CMM 4.20 - 5.40 12/23/2011 LOW [facility] HEMATOLOGY Hgb 10.4 g/dL 12.0 - 16.0 12/23/2011 LOW [facility] HEMATOLOGY MCHC 34.1 g/dL 32.0 - 36.0 12/23/2011 Normal [facility] HEMATOLOGY MCH 31.7 pg 27.0 - 31.0 12/23/2011 [place] [facility] HEMATOLOGY Hct 30.6 % 36.0 - 48.0 12/23/2011 LOW [facility] HEMATOLOGY MCV 93.1 fL 81.0 - 99.0 12/23/2011 Normal [facility] URINALYSIS UA Nitrite Negative (12/23/2011 03:40:00) Negative 12/23/2011 Normal [facility] URINALYSIS UA Bili Negative *NA* (12/23/2011 03:40:00) Negative 12/23/2011 NA [facility] URINALYSIS UA Urobilinogen 0.2 EU/dL 0.1 - 1.0 12/23/2011 Normal [facility] URINALYSIS UA Blood Trace *ABN* (12/23/2011 03:40:00) Negative 12/23/2011 ABN [facility] URINALYSIS UA Ketones Negative *NA* (12/23/2011 03:40:00) Negative 12/23/2011 NA [facility] URINALYSIS UA Protein Negative (12/23/2011 03:40:00) Negative 12/23/2011 Normal [facility] URINALYSIS UA Glucose >=1000 mg/dL *ABN* (12/23/2011 03:40:00) Negative 12/23/2011 ABN [facility] URINALYSIS UA pH 6.5 5.0 - 8.0 12/23/2011 Normal [facility] URINALYSIS UA Turbidity Slight Cloudy (12/23/2011 03:40:00) Clear 12/23/2011 Normal [facility] URINALYSIS UA Spec Grav 1.010 <=1.030 12/23/2011 Normal [facility] URINALYSIS UA Color Yellow *NA* (12/23/2011 03:40:00) Yellow 12/23/2011 NA [facility] URINALYSIS UA Bacteria Few /HPF (12/23/2011 03:40:00) None Seen 12/23/2011 Normal [facility] URINALYSIS UA Sq Epi Few /LPF (12/23/2011 03:40:00) Few 12/23/2011 Normal [facility] URINALYSIS UA Mucus Few /LPF (12/23/2011 03:40:00) None Seen 12/23/2011 Normal [facility] URINALYSIS UA WBC Packed *ABN* (12/23/2011 03:40:00) None Seen 12/23/2011 ABN [facility] URINALYSIS UA Leuk Est Moderate *ABN* (12/23/2011 03:40:00) Negative 12/23/2011 ABN [facility] URINALYSIS UA RBC 6-10 /HPF *ABN* (12/23/2011 03:40:00) 0 - 2 12/23/2011 ABN [facility] CHEMISTRY BUN 16 mg/dL 7 - 22 12/22/2011 Normal [facility] CHEMISTRY Glucose Lvl 181 mg/dL 70 - 99 12/22/2011 [place] 6Interpretive Data: Adult reference range values reflect the clinical guidelinesof the [place] Diabetes [employer]. [facility] CHEMISTRY Sodium Lvl 138 meq/L 135 - 145 12/22/2011 Normal [facility] CHEMISTRY Creatinine Lvl 1.3 mg/dL 0.5 - 1.4 12/22/2011 Normal [facility] CHEMISTRY Potassium Lvl 4.0 meq/L 3.5 - 5.1 12/22/2011 Normal [facility] CHEMISTRY Chloride Lvl 104 meq/L 95 - 109 12/22/2011 Normal [facility] CHEMISTRY Calcium Lvl 8.8 mg/dL 8.5 - 10.5 12/22/2011 Normal [facility] CHEMISTRY CO2 23 meq/L 24 - 32 12/22/2011 LOW [facility] CHEMISTRY AGAP 15.0 meq/L 10.0 - 20.0 12/22/2011 Normal [facility] HEMATOLOGY Eosinophils # 0.2 K/CMM 0.0 - 0.5 12/22/2011 Normal [facility] HEMATOLOGY Monocytes # 1.4 K/CMM 0.0 - 0.8 12/22/2011 [place] [facility] HEMATOLOGY Lymphocytes # 1.6 K/CMM 1.0 - 5.5 12/22/2011 Normal [facility] HEMATOLOGY Basophils # 0.0 K/CMM 0.0 - 0.2 12/22/2011 Normal [facility] HEMATOLOGY Basophils 0.4 % 0.0 - 1.0 12/22/2011 Normal [facility] HEMATOLOGY Segs-Bands # 4.0 K/CMM 1.5 - 8.1 12/22/2011 Normal [facility] HEMATOLOGY Lymphocytes 21.9 % 20.0 - 40.0 12/22/2011 Normal [facility] HEMATOLOGY Segs 54.9 % 45.0 - 75.0 12/22/2011 Normal [facility] HEMATOLOGY Eosinophils 3.3 % 0.0 - 4.0 12/22/2011 Normal [facility] HEMATOLOGY Monocytes 19.5 % 2.0 - 12.0 12/22/2011 [facility] HEMATOLOGY MPV 9.9 fL 7.4 - 10.4 12/22/2011 Normal [facility] HEMATOLOGY Platelet 176 K/CMM 133 - 450 12/22/2011 Normal [facility] HEMATOLOGY MCH 30.6 pg 27.0 - 31.0 12/22/2011 Normal [facility] HEMATOLOGY MCV 91.9 fL 81.0 - 99.0 12/22/2011 Normal [facility] HEMATOLOGY Hct 33.4 % 36.0 - 48.0 12/22/2011 LOW [facility] HEMATOLOGY Hgb 11.1 g/dL 12.0 - 16.0 12/22/2011 LOW [facility] HEMATOLOGY RBC 3.63 M/CMM 4.20 - 5.40 12/22/2011 LOW [facility] HEMATOLOGY WBC 7.3 K/CMM 3.7 - 10.4 12/22/2011 Normal [facility] HEMATOLOGY RDW 14.1 % 11.5 - 14.5 12/22/2011 Normal [facility] HEMATOLOGY MCHC 33.3 g/dL 32.0 - 36.0 12/22/2011 Normal [facility] CHEMISTRY Total CK 85 U/L 12 - 191 12/22/2011 Normal [facility] CHEMISTRY CK MB null 0.5 - 3.6 12/22/2011 Normal [facility] CHEMISTRY Troponin-I null 0.00 - 0.40 12/22/2011 Normal [facility] CHEMISTRY Total Protein 8.3 g/dL 6.4 - 8.4 12/22/2011 Normal [facility] CHEMISTRY ALT 35 U/L 0 - 65 12/22/2011 Normal [facility] CHEMISTRY A/G Ratio 0.7 0.7 - 1.6 12/22/2011 Normal [facility] CHEMISTRY Alk Phos 65 U/L 39 - 136 12/22/2011 Normal [facility] CHEMISTRY Bili Total 0.7 mg/dL 0.2 - 1.3 12/22/2011 Normal [facility] CHEMISTRY AST 31 U/L 0 - 37 12/22/2011 Normal [facility] CHEMISTRY Globulin 4.8 g/dL 2.0 - 4.0 12/22/2011 [place] [facility] CHEMISTRY Albumin Lvl 3.5 g/dL 3.5 - 5.0 12/22/2011 Normal [facility] CHEMISTRY B/C Ratio 16 6 - 25 12/22/2011 Normal [facility] CHEMISTRY CK MB Index null 0.0 - 2.5 12/22/2011 Normal [facility] HEMATOLOGY RBC Morph Normal (12/22/2011 00:15:00) 12/22/2011 Normal [facility] HEMATOLOGY Plt Morph Normal (12/22/2011 00:15:00) 12/22/2011 Normal [facility] URINALYSIS UA Leuk Est Large *ABN* (12/21/2011 21:44:00) Negative 12/22/2011 ABN [facility] URINALYSIS UA Nitrite Positive *ABN* (12/21/2011 21:44:00) Negative 12/22/2011 ABN [facility] URINALYSIS UA Amorph Carina Few /HPF *ABN* (12/21/2011 21:44:00) None Seen 12/22/2011 ABN [facility] URINALYSIS UA Ketones Negative *NA* (12/21/2011 21:44:00) Negative 12/22/2011 NA [facility] URINALYSIS UA pH 6.0 5.0 - 8.0 12/22/2011 Normal [facility] URINALYSIS UA Protein 100 mg/dL *ABN* (12/21/2011 21:44:00) Negative 12/22/2011 ABN [facility] URINALYSIS UA Urobilinogen 0.2 EU/dL 0.1 - 1.0 12/22/2011 Normal [facility] URINALYSIS UA Blood Moderate *ABN* (12/21/2011 21:44:00) Negative 12/22/2011 ABN [facility] URINALYSIS UA Bili Negative *NA* (12/21/2011 21:44:00) Negative 12/22/2011 NA [facility] URINALYSIS UA Glucose 250 mg/dL *ABN* (12/21/2011 21:44:00) Negative 12/22/2011 ABN [facility] URINALYSIS UA WBC Packed *ABN* (12/21/2011 21:44:00) None Seen 12/22/2011 ABN [facility] URINALYSIS UA RBC Packed *ABN* (12/21/2011 21:44:00) 0 - 2 12/22/2011 ABN [facility] URINALYSIS UA Sq Epi Rare /LPF (12/21/2011 21:44:00) Few 12/22/2011 Normal [facility] URINALYSIS UA Bacteria Many /HPF (12/21/2011 21:44:00) None Seen 12/22/2011 Normal [facility] URINALYSIS UA Mucus Moderate /LPF *ABN* (12/21/2011 21:44:00) None Seen 12/22/2011 ABN [facility] URINALYSIS UA Color Yellow *NA* (12/21/2011 21:44:00) Yellow 12/22/2011 NA [facility] URINALYSIS UA Turbidity Turbid *ABN* (12/21/2011 21:44:00) Clear 12/22/2011 ABN [facility] URINALYSIS UA Spec Grav 1.015 <=1.030 12/22/2011 Normal [facility] Vital Signs Vital Sign Value Date Comments Source Temperature Oral (F) 98.0 F 10/02/2016 [facility] Systolic (mm Hg) 141 10/02/2016 [facility] Diastolic (mm Hg) 80 10/02/2016 [facility] Heart Rate 77 10/02/2016 [facility] Respitory Rate 16 10/02/2016 [facility] Systolic (mm Hg) 181 10/02/2016 [facility] Diastolic (mm Hg) 84 10/02/2016 [facility] Heart Rate 89 10/02/2016 [facility] Respitory Rate 18 10/02/2016 [facility] Height 157.48 cm 10/02/2016 [facility] BMI Calculated 26.58 10/02/2016 [facility] Temperature Oral (F) 98.2 F 10/02/2016 [facility] Weight 65.909 10/02/2016 [facility] Systolic (mm Hg) 163 10/02/2016 [facility] Diastolic (mm Hg) 82 10/02/2016 [facility] Respitory Rate 18 10/02/2016 [facility] Heart Rate 73 10/02/2016 [facility] Heart Rate 78 09/29/2016 [facility] Systolic (mm Hg) 135 09/29/2016 [facility] Diastolic (mm Hg) 64 09/29/2016 [facility] Temperature Oral (F) 98.3 F 09/29/2016 [facility] Respitory Rate 16 09/29/2016 [facility] BMI Calculated 24.19 09/29/2016 [facility] Weight 60 09/29/2016 [facility] Temperature Oral (F) 98.4 F 09/29/2016 [facility] Respitory Rate 16 09/29/2016 [facility] Heart Rate 89 09/29/2016 [facility] Height 157.48 cm 09/29/2016 [facility] Systolic (mm Hg) 159 09/29/2016 [facility] Diastolic (mm Hg) 73 09/29/2016 [facility] Systolic (mm Hg) 132 09/24/2016 [facility] Diastolic (mm Hg) 53 09/24/2016 [facility] Heart Rate 81 09/24/2016 [facility] Heart Rate 88 09/24/2016 [facility] Respitory Rate 18 09/24/2016 [facility] Heart Rate 87 09/24/2016 [facility] Respitory Rate 18 09/24/2016 [facility] Systolic (mm Hg) 166 09/24/2016 [facility] Diastolic (mm Hg) 68 09/24/2016 [facility] Systolic (mm Hg) 186 09/24/2016 [facility] Diastolic (mm Hg) 72 09/24/2016 [facility] Respitory Rate 20 09/24/2016 [facility] Weight 59.545 09/24/2016 [facility] Respitory Rate 18 05/22/2016 [facility] Temperature Oral (F) 98 F 05/22/2016 [facility] Systolic (mm Hg) 161 05/22/2016 [facility] Diastolic (mm Hg) 78 05/22/2016 [facility] Heart Rate 82 05/22/2016 [facility] Weight 61.364 05/22/2016 [facility] BMI Calculated 24.74 05/22/2016 [facility] Height 157.48 cm 05/22/2016 [facility] Temperature Oral (F) 98.1 F 05/22/2016 [facility] Heart Rate 87 05/22/2016 [facility] Systolic (mm Hg) 180 05/22/2016 [facility] Diastolic (mm Hg) 81 05/22/2016 [facility] Respitory Rate 18 05/22/2016 [facility] Temperature Oral (F) 99.0 F 12/24/2011 [facility] Respitory Rate 18 12/24/2011 [facility] Heart Rate 86 12/24/2011 [facility] Diastolic (mm Hg) 71 12/24/2011 [facility] Systolic (mm Hg) 170 12/24/2011 [facility] Heart Rate 74 12/24/2011 [facility] Temperature Oral (F) 98.3 F 12/24/2011 [facility] Respitory Rate 18 12/24/2011 [facility] Systolic (mm Hg) 162 12/24/2011 [facility] Diastolic (mm Hg) 73 12/24/2011 [facility] Temperature Oral (F) 98.3 F 12/24/2011 [facility] Systolic (mm Hg) 163 12/24/2011 [facility] Respitory Rate 18 12/24/2011 [facility] Diastolic (mm Hg) 75 12/24/2011 [facility] Heart Rate 72 12/24/2011 [facility] Weight 75.000 12/22/2011 [facility] Height 157.48 cm 12/22/2011 [facility] Encounters Location Location Details Encounter Type Encounter Number Reason For Visit Attending Provider ADM Date DC Date Status Source [facility] Inpatient [id number] LEANN STACY 12/23/2011 12/24/2011 Active [facility] Emergency [id number] Ace Chaney 05/22/2016 05/22/2016 [facility] [place] [id number] Ren Blanca 06/03/2016 06/04/2016 OPID [facility] Emergency [id number] Dominguez Weathers 09/24/2016 09/24/2016 [facility] Emergency [id number] Nadim Jewish 09/29/2016 09/29/2016 [facility] Emergency [id number] Sherrill Reeves 10/02/2016 10/02/2016 Critical access hospital [facility] [id number] Bebeto Harvey 12/31/2016 01/01/2017 MH [facility] Outpatient [id number] Bebeto Wes 12/31/2016 01/01/2017 Critical access hospital [facility] [place] [id number] Ren Blanca 10/18/2018 10/19/2018 [facility] [place] Procedures Procedure Code Date Perfomer Comments Source Bypass [id number] [facility] [place] Cholecystectomy [id number] [facility] Hysterectomy [id number] [facility] [place] Bypass [id number] [facility] Cholecystectomy [id number] [facility] Hysterectomy [id number] [facility]
--- OUTSIDE RECORDS SUMMARY | 2019-01-25 10:42 | XMS REPORT | Summary of Care ---
Author Author [facility] Organization [facility] Address Unknown Phone Unavailable Encounter HQ Candy(GWYN) [id number] Date(s): 05/22/16 - 05/22/16 [facility] [address] [place] [address]- [facility] [phone] Discharge Diagnosis: Accidental fall Discharge Diagnosis: Broken rib Discharge Diagnosis: Broken clavicle Discharge Disposition: Home or Self Care Attending Physician: Ace Chaney MD Vital Signs Most recent to 1 2 oldest [Reference Range]: Height 157.48 cm (05/22/16 2:34 PM) Temperature Oral 98 DegF 98.1 DegF [96.4-99.1 DegF] (05/22/16 4:00 PM) (05/22/16 2:34 PM) Blood Pressure 161/78 mmHg 180/81 mmHg [90-140/60-90 mmHg] *HI* *HI* (05/22/16 4:00 PM) (05/22/16 2:34 PM) Respiratory Rate 18 BRMIN 18 BRMIN [14-20 BRMIN] (05/22/16 4:00 PM) (05/22/16 2:34 PM) Peripheral Pulse 82 bpm 87 bpm Rate [60-100 bpm] (05/22/16 4:00 PM) (05/22/16 2:34 PM) Weight 61.364 kg (05/22/16 2:34 PM) Body Mass Index 24.74 m2 (05/22/16 2:34 PM) Problem List Condition Effective Dates Status Health Status Informant 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) Depression(Confirmed Active ) Diabetes Active mellitus(Confirmed) OA - Active Osteoarthritis(Confi rmed) Allergies, Adverse Reactions, Alerts Substance Reaction Severity Status Diflucan Active iodine topical Active Rocephin Active sulfa drugs Active Medications Ultram 50 mg oral tablet 50 mg=1 tab, PO, Q4H, PRN pain, X 5 day, # 30 tab, 0 Refill(s) Start Date: 05/22/16 Stop Date: 05/27/16 Status: Ordered Results No data available for this section Immunizations Given and Recorded Vaccine Date Status Refusal Reason influenza virus vaccine, inactivated 08/24/06 Given Procedures No data available for this section Social History No data available for this section Assessment and Plan No data available for this section
--- OUTSIDE RECORDS SUMMARY | 2019-01-25 10:42 | XMS REPORT | CCD ---
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
--- OUTSIDE RECORDS SUMMARY | 2019-01-25 10:42 | XMS REPORT | Summary of Care ---
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) Depression(Confirmed Active ) Diabetes Active mellitus(Confirmed) OA - Active Osteoarthritis(Confi rmed) Allergies, Adverse Reactions, Alerts Substance Reaction Severity Status Diflucan Active iodine topical Active Rocephin Active sulfa drugs Active Medications No data available for this section Results No data available for this section Immunizations Given and Recorded Vaccine Date Status Refusal Reason influenza virus vaccine, inactivated 08/24/06 Given Procedures No data available for this section Social History No data available for this section Assessment and Plan No data available for this section
--- OUTSIDE RECORDS SUMMARY | 2019-01-25 10:42 | XMS REPORT | Summary of Care ---
Author Author [facility] Organization [facility] Address Unknown Phone Unavailable Encounter HQ Candy(FIN) [id number] Date(s): 09/29/16 - 09/29/16 [facility] [address] [place] [address]- [facility] [phone] Discharge Diagnosis: Acute lower urinary tract infection Discharge Disposition: Home or Self Care Attending Physician: Won Jaffe MD Vital Signs Most recent to 1 2 oldest [Reference Range]: Height 157.48 cm (09/29/16 7:50 AM) Temperature Oral 98.3 DegF 98.4 DegF [96.4-99.1 DegF] (09/29/16 10:42 AM) (09/29/16 7:50 AM) Blood Pressure 135/64 mmHg 159/73 mmHg [90-140/60-90 mmHg] (09/29/16 10:42 AM) *HI* (09/29/16 7:50 AM) Respiratory Rate 16 BRMIN 16 BRMIN [14-20 BRMIN] (09/29/16 10:42 AM) (09/29/16 7:50 AM) Peripheral Pulse 78 bpm 89 bpm Rate [60-100 bpm] (09/29/16 10:42 AM) (09/29/16 7:50 AM) Weight 60 kg (09/29/16 7:50 AM) Body Mass Index 24.19 m2 (09/29/16 7:50 AM) Problem List Condition Effective Dates Status Health Status Informant 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) Depression(Confirmed Active ) Diabetes(Confirmed) Resolved Diabetes Active mellitus(Confirmed) HTN Resolved (hypertension)(Confi rmed) OA - Active Osteoarthritis(Confi rmed) UTI (urinary tract Resolved infection)(Confirmed ) Allergies, Adverse Reactions, Alerts Substance Reaction Severity Status Diflucan Active iodine topical Active Rocephin Active sulfa drugs Active Medications Levaquin 500 mg, 100 mL, Route: IVPB, Drug form: SOLN, ONCE, Dosing Weight 60, kg, Start date: 09/29/16 9:08:00 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, Stop date: 09/29/16 9:08:00 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 Notes: (Same as:Levaquin) Start Date: 09/29/16 Stop Date: 09/29/16 Status: Completed Levaquin 500 mg oral tablet 500 mg=1 tab, PO, Q24H, X 7 day, # 7 tab, 0 Refill(s) Start Date: 09/29/16 Stop Date: 10/06/16 Status: Ordered Results ELECTROLYTES Most recent to 1 oldest [Reference Range]: Sodium Lvl [135-145 138 mEq/L mEq/L] (09/29/16 8:37 AM) Potassium Lvl 4.5 mEq/L [3.5-5.1 mEq/L] (09/29/16 8:37 AM) Chloride Lvl [95-109 104 mEq/L mEq/L] (09/29/16 8:37 AM) CO2 [24-32 mEq/L] 24 mEq/L (09/29/16 8:37 AM) AGAP [10.0-20.0 14.5 mEq/L mEq/L] (09/29/16 8:37 AM) CHEM PANEL Most recent to 1 oldest [Reference Range]: Creatinine Lvl 0.98 mg/dL [0.50-1.40 mg/dL] (09/29/16 8:37 AM) eGFR 54 mL/min/1.73m2 1 *NA* (09/29/16 8:37 AM) BUN [7-22 mg/dL] 14 mg/dL (09/29/16 8:37 AM) B/C Ratio [6-25] 14 (09/29/16 8:37 AM) Glucose Lvl [70-99 194 mg/dL mg/dL] *HI* (09/29/16 8:37 AM) Total Protein 8.9 g/dL [6.4-8.4 g/dL] *HI* (09/29/16 8:37 AM) Albumin Lvl [3.5-5.0 3.9 g/dL g/dL] (09/29/16 8:37 AM) Globulin [2.7-4.2 5.0 g/dL g/dL] *HI* (09/29/16 8:37 AM) A/G Ratio [0.7-1.6] 0.8 (09/29/16 8:37 AM) Calcium Lvl 9.1 mg/dL [8.5-10.5 mg/dL] (09/29/16 8:37 AM) ALT [0-65 unit/L] 19 unit/L (09/29/16 8:37 AM) AST [0-37 unit/L] 13 unit/L (09/29/16 8:37 AM) Alk Phos [39-136 88 unit/L unit/L] (09/29/16 8:37 AM) Bili Total [0.2-1.3 0.7 mg/dL mg/dL] (09/29/16 8:37 AM) 1Result Comment: The eGFR is calculated using the [...] from the National Kidney Disease Education Program ( NKDEP) which additionally recommends that when the eGFR is used in patients with extremes of body mass index for purposes of drug dosing, the eGFR should be mul tiplied by the estimated BMI. URINE AND STOOL Most recent to 1 oldest [Reference Range]: UA Turbidity [Clear] Clear (09/29/16 8:37 AM) UA Color [Yellow] Yellow *NA* (09/29/16 8:37 AM) UA pH [5.0-8.0] 6.5 (09/29/16 8:37 AM) UA Spec Grav 1.010 [<=1.030] (09/29/16 8:37 AM) UA Glucose Negative [Negative] (09/29/16 8:37 AM) UA Blood [Negative] Trace *ABN* (09/29/16 8:37 AM) UA Ketones Trace [Negative] *ABN* (09/29/16 8:37 AM) UA Protein Negative [Negative] (09/29/16 8:37 AM) UA Urobilinogen 0.2 EU/dL [0.1-1.0 EU/dL] (09/29/16 8:37 AM) UA Bili [Negative] Negative *NA* (09/29/16 8:37 AM) UA Leuk Est Small [Negative] *ABN* (09/29/16 8:37 AM) UA Nitrite Negative [Negative] (09/29/16 8:37 AM) UA WBC [None Seen 3-5 /HPF /HPF] (09/29/16 8:37 AM) UA RBC [0-2] None Seen (09/29/16 8:37 AM) UA Bacteria [None None Seen Seen] (09/29/16 8:37 AM) UA Sq Epi [Few /LPF] Rare /LPF (09/29/16 8:37 AM) Micro? Performed (09/29/16 8:37 AM) HEMATOLOGY Most recent to 1 oldest [Reference Range]: WBC [3.7-10.4 K/CMM] 7.7 K/CMM (09/29/16 8:37 AM) RBC [4.20-5.40 3.92 M/CMM M/CMM] *LOW* (09/29/16 8:37 AM) Hgb [12.0-16.0 g/dL] 12.1 g/dL (09/29/16 8:37 AM) Hct [36.0-48.0 %] 35.7 % *LOW* (09/29/16 8:37 AM) MCV [80.0-98.0 fL] 91.0 fL (09/29/16 8:37 AM) MCH [27.0-31.0 pg] 31.0 pg (09/29/16 8:37 AM) MCHC [32.0-36.0 34.1 g/dL g/dL] (09/29/16 8:37 AM) RDW [11.5-14.5 %] 13.5 % (09/29/16 8:37 AM) Platelet [133-450 187 K/CMM K/CMM] (09/29/16 8:37 AM) MPV [7.4-10.4 fL] 9.3 fL (09/29/16 8:37 AM) Segs [45.0-75.0 %] 79.8 % *HI* (09/29/16 8:37 AM) Lymphocytes 10.4 % [20.0-40.0 %] *LOW* (09/29/16 8:37 AM) Monocytes [2.0-12.0 8.6 % %] (09/29/16 8:37 AM) Eosinophils [0.0-4.0 0.8 % %] (09/29/16 8:37 AM) Basophils [0.0-1.0 0.4 % %] (09/29/16 8:37 AM) Segs-Bands # 6.1 K/CMM [1.5-8.1 K/CMM] (09/29/16 8:37 AM) Lymphocytes # 0.8 K/CMM [1.0-5.5 K/CMM] *LOW* (09/29/16 8:37 AM) Monocytes # [0.0-0.8 0.7 K/CMM K/CMM] (09/29/16 8:37 AM) Eosinophils # 0.1 K/CMM [0.0-0.5 K/CMM] (09/29/16 8:37 AM) Immunizations Given and Recorded Vaccine Date Status Refusal Reason influenza virus vaccine, inactivated 08/24/06 Given Procedures Procedure Date Related Diagnosis Body Site Bypass Cholecystectomy Hysterectomy Social History Social History Type Response Smoking Status Never smoker; Exposure to Tobacco Smoke None; Cigarette Smoking Last 365 Days No; Reg Smoking Cessation Counseling No Assessment and Plan No data available for this section
--- OUTSIDE RECORDS SUMMARY | 2019-01-25 10:42 | XMS REPORT | Summary of Care ---
Author Author [facility] Organization [facility] Address Unknown Phone Unavailable Encounter HQ Candy(GWYN) [id number] Date(s): 10/02/16 - 10/02/16 [facility] [address] [place] [address]- S [phone] Discharge Diagnosis: Acute urinary retention Discharge Disposition: Home or Self Care Attending Physician: Sherrill Reeves MD Vital Signs 1 2 3 Most recent to oldest [Reference Range]: 157.48 cm (10/02/16 11:15 AM) Height 98.0 DegF (10/02/16 3:15 PM) 98.2 DegF (10/02/16 11:15 AM) Temperature Oral [96.4-99.1 DegF] 141/80 mmHg *HI* (10/02/16 3:15 PM) 181/84 mmHg *HI* (10/02/16 2:15 PM) 163/82 mmHg *HI* (10/02/16 11:15 AM) Blood Pressure [90-140/60-90 mmHg] 16 BRMIN (10/02/16 3:15 PM) 18 BRMIN (10/02/16 2:15 PM) 18 BRMIN (10/02/16 11:15 AM) Respiratory Rate [14-20 BRMIN] 77 bpm (10/02/16 3:15 PM) 89 bpm (10/02/16 2:15 PM) 73 bpm (10/02/16 11:15 AM) Peripheral Pulse Rate [60-100 bpm] 65.909 kg (10/02/16 11:15 AM) Weight 26.58 m2 (10/02/16 11:15 AM) Body Mass Index Problem List Condition Effective Dates Status Health Status Informant 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) Depression(Confirmed Active ) Diabetes(Confirmed) Active Diabetes Active mellitus(Confirmed) HTN Active (hypertension)(Confi rmed) OA - Active Osteoarthritis(Confi rmed) UTI (urinary tract Active infection)(Confirmed ) Allergies, Adverse Reactions, Alerts Substance Reaction Severity Status Diflucan Active iodine topical Active Rocephin Active sulfa drugs Active Medications No data available for this section Results URINE AND STOOL Most recent to 1 oldest [Reference Range]: UA Turbidity [Clear] Clear (10/02/16 2:50 PM) UA Color [Yellow] Yellow *NA* (10/02/16 2:50 PM) UA pH [5.0-8.0] 6.0 (10/02/16 2:50 PM) UA Spec Grav <=1.005 [<=1.030] *NA* (10/02/16 2:50 PM) UA Glucose Negative [Negative] (10/02/16 2:50 PM) UA Blood [Negative] Negative (10/02/16 2:50 PM) UA Ketones Negative [Negative] *NA* (10/02/16 2:50 PM) UA Protein Negative [Negative] (10/02/16 2:50 PM) UA Urobilinogen 0.2 EU/dL [0.1-1.0 EU/dL] (10/02/16 2:50 PM) UA Bili [Negative] Negative *NA* (10/02/16 2:50 PM) UA Leuk Est Small [Negative] *ABN* (10/02/16 2:50 PM) UA Nitrite Negative [Negative] (10/02/16 2:50 PM) UA WBC [None Seen 6-10 /HPF /HPF] *ABN* (10/02/16 2:50 PM) UA RBC [0-2 /HPF] 0-2 /HPF (10/02/16 2:50 PM) UA Bacteria [None Occasional /HPF Seen /HPF] (10/02/16 2:50 PM) UA Sq Epi [Few /LPF] Rare /LPF (10/02/16 2:50 PM) Immunizations Given and Recorded Vaccine Date Status Refusal Reason influenza virus vaccine, inactivated 08/24/06 Given Procedures Procedure Date Related Diagnosis Body Site Bypass Cholecystectomy Hysterectomy Social History Social History Type Response Smoking Status Reg Smoking Cessation Counseling No; Never smoker; Exposure to Tobacco Smoke None; Cigarette Smoking Last 365 Days No Assessment and Plan No data available for this section
--- OUTSIDE RECORDS SUMMARY | 2019-01-25 10:42 | XMS REPORT | Summary of Care ---
Author Author [facility] Outpatient Imaging [facility] Outpatient [facility] [place] Address Unknown Phone Unavailable Encounter HQ Encntr_fadumo(FIN) [id number] Date(s): 12/31/16 - 12/31/16 [facility] Outpatient Imaging [place] [address] [place] [address], [address] [facility] [place] [id number]- [phone] Discharge Disposition: Home or Self Care Attending Physician: Bebeto Harvey MD Vital Signs No data available for [...]
--- OUTSIDE RECORDS SUMMARY | 2019-01-25 10:42 | XMS REPORT | Summary of Care ---
Author Author [facility] Organization [facility] Address Unknown Phone Unavailable Encounter HQ Jonir_fadumo(FIN) [id number] Date(s): 12/31/16 - 12/31/16 [facility] [address] [place] [address]- S [phone] Discharge Disposition: Home or Self Care Attending Physician: Bebeto Harvey MD Referring Physician: Bebeto Harvey MD Vital Signs No [...]
--- OUTSIDE RECORDS SUMMARY | 2019-01-25 10:42 | XMS REPORT ---
Author Author [facility] Address Unknown Phone Unavailable Care Team Providers Care Senior Search Marketing Analyst Name Role Phone NAFISA RIDLEY Unavailable Unavailable Problems This patient has no known problems. Allergies, Adverse Reactions, Alerts This patient has no known allergies or adverse reactions. Medications This patient has no known medications. Results Test Description Test Time Test Comments Text Results Atomic Results Result Comments URINE CULTURE 2017-11-01 13:31:00 CULTURE (BEAKER) (test avcu=6579) Amikacin (test code=1) Ampicillin + Sulbactam (test code=6) Aztreonam (test code=32) Cefepime (test code=51) Cefoxitin (test code=68) Ceftazidime (test code=27) Ceftriaxone (test code=52) Ertapenem (test code=38) Gentamicin (test code=18) Levofloxacin (test code=22) Meropenem (test code=34) Nitrofurantoin (test code=23) Piperacillin + Tazobactam (test code=29) Tetracycline (test code=2) Tobramycin (test code=25) Trimethoprim + Sulfamethoxazole (test code=47) CULTURE (BEAKER) (test mjye=3755) >100,000 col/mL Escherichia coli URINALYSIS W/ REFLEX URINE [id number] 14:27:00* Test Item Value Reference Range Comments COLOR (BEAKER) (test fsko=266) Yellow CLARITY (BEAKER) (test vwdz=689) Cloudy SPECIFIC GRAVITY UA (BEAKER) (test zhkk=467) 1.015 1.001-1.035 PH UA (BEAKER) (test mfug=653) 7.0 5.0-8.0 PROTEIN UA (BEAKER) (test ukuc=589) 30 mg/dL Negative GLUCOSE UA (BEAKER) (test xqfx=556) 250 mg/dL Negative KETONES UA (BEAKER) (test uljt=826) Negative Negative BILIRUBIN UA (BEAKER) (test igon=084) Negative Negative BLOOD UA (BEAKER) (test zapa=869) Small Negative NITRITE UA (BEAKER) (test ocas=986) Negative Negative LEUKOCYTE ESTERASE UA (BEAKER) (test lviv=538) Large Negative UROBILINOGEN UA (BEAKER) (test osgi=429) 0.2 mg/dL 0.2-1.0 BACTERIA (BEAKER) (test auhf=763) Many RBC UA-MANUAL (BEAKER) (test uqrq=9585) 10-20 /HPF WBC UA-MANUAL (BEAKER) (test mtjr=8574) >100 /HPF SQUAMOUS EPITHELIAL MANUAL (BEAKER) (test ucvc=4566) 10-20 /HPF SOURCE(BEAKER) (test croq=8522)
--- OUTSIDE RECORDS SUMMARY | 2019-01-25 10:42 | XMS REPORT | Summary of Care ---
Author Author [facility] Outpatient Imaging [facility] [place] Address Unknown Phone Unavailable Encounter HQ Jg_fadumo(FIN) [id number] Date(s): 10/18/18 - 10/18/18 [facility] [place] [address] [facility], [address] [place] [address]- [phone] Discharge Disposition: Home or Self Care Attending Physician: Ren Blanca MD Referring Physician: Ren Blanca MD Vital Signs No data available for this section Problem List Condition Effective Dates Status Health Status Informant 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) Depression(Confirmed Active ) Diabetes Active mellitus(Confirmed) HTN Active (hypertension)(Confi rmed) OA - Active Osteoarthritis(Confi rmed) UTI (urinary tract Active infection)(Confirmed ) Allergies, Adverse Reactions, Alerts Substance Reaction Severity Status sulfa drugs Active iodine topical Active Rocephin Active Diflucan Active Medications No data available for this section Results No data available for this section Immunizations Given and Recorded Vaccine Date Status Refusal Reason influenza virus vaccine, inactivated 08/24/06 Given Procedures Procedure Date Related Diagnosis Body Site Status Bypass Completed Cholecystectomy Completed Hysterectomy Completed Social History Social History Type Response Smoking Status Reg Smoking Cessation Counseling No; Never smoker; Exposure to Tobacco Smoke None; Cigarette Smoking Last 365 Days No entered on: 10/02/16 Assessment and Plan No data available for this section
--- OUTSIDE RECORDS SUMMARY | 2019-01-25 10:42 | XMS REPORT | CCD ---
Author Author Auto Generated Organization [facility] Outpatient Imaging - [place] Address Unknown Phone Unavailable Care Team Providers Care Facialist Name Role Phone Ren Blanca CP Allergies, [...]
--- OUTSIDE RECORDS SUMMARY | 2019-01-25 10:42 | XMS REPORT | CCD ---
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 Depression Active Diabetes mellitus Active HTN - Hypertension < 02/19/2011 Inactive OA - Osteoarthritis Active Medications Medication Instructions Start Date End Date Status Dextrose 50% Syringe 12.5 gm, 25 mL, Route: IVP, Drug 12/22/2011 12/24/2011 Discontinued Form: INJ, PRN, PRN Blood Glucose Results, Start date: 12/22/11 9:53:00, Duration: 30 day, Stop date: 01/21/12 9:52:00 glucagon 1 mg, Route: IM, Drug form: 12/22/2011 12/24/2011 Discontinued PDR/INJ, PRN, PRN Blood Glucose Results, Start date: 12/22/11 9:53:00, Duration: 30 day, Stop date: 01/21/12 9:52:00 Dextrose 50% Syringe 25 gm, 50 mL, Route: IVP, Drug 12/22/2011 12/24/2011 Discontinued Form: INJ, PRN, PRN Blood Glucose Results, Start date: 12/22/11 9:53:00, Duration: 30 day, Stop date: 01/21/12 9:52:00 insulin aspart 2 unit, 0.02 mL, Route: SUB-Q, Drug 12/22/2011 12/24/2011 Discontinued form: SOLN, Bedtime, PRN Blood Glucose Results, Start date: 12/22/11 9:53:00, Duration: 30 day, Stop date: 01/21/12 9:52:00 insulin aspart 4 unit, 0.04 mL, Route: SUB-Q, Drug 12/22/2011 12/24/2011 Discontinued form: SOLN, Bedtime, PRN Blood Glucose Results, Start date: 12/22/11 9:53:00, Duration: 30 day, Stop date: 01/21/12 9:52:00 insulin aspart 3 unit, 0.03 mL, Route: SUB-Q, Drug 12/22/2011 12/24/2011 Discontinued form: SOLN, Bedtime, PRN Blood Glucose Results, Start date: 12/22/11 9:53:00, Duration: 30 day, Stop date: 01/21/12 9:52:00 insulin aspart 1 unit, 0.01 mL, Route: SUB-Q, Drug 12/22/2011 12/24/2011 Discontinued form: SOLN, Bedtime, PRN Blood Glucose Results, Start date: 12/22/11 9:53:00, Duration: 30 day, Stop date: 01/21/12 9:52:00 insulin aspart 5 unit, 0.05 mL, Route: SUB-Q, Drug 12/22/2011 12/24/2011 Discontinued form: SOLN, TID-Before Meals, PRN Blood Glucose Results, Start date: 12/22/11 9:53:00, Duration: 30 day, Stop date: 01/21/12 9:52:00 insulin aspart 3 unit, 0.03 mL, Route: SUB-Q, Drug 12/22/2011 12/24/2011 Discontinued form: SOLN, TID-Before Meals, PRN Blood Glucose Results, Start date: 12/22/11 9:53:00, Duration: 30 day, Stop date: 01/21/12 9:52:00 insulin aspart 2 unit, 0.02 mL, Route: SUB-Q, Drug 12/22/2011 12/24/2011 Discontinued form: SOLN, TID-Before Meals, PRN Blood Glucose Results, Start date: 12/22/11 9:53:00, Duration: 30 day, Stop date: 01/21/12 9:52:00 insulin aspart 4 unit, 0.04 mL, Route: SUB-Q, Drug 12/22/2011 12/24/2011 Discontinued form: SOLN, TID-Before Meals, PRN Blood Glucose Results, Start date: 12/22/11 9:53:00, Duration: 30 day, Stop date: 01/21/12 9:52:00 insulin aspart 1 unit, 0.01 mL, Route: SUB-Q, Drug 12/22/2011 12/24/2011 Discontinued form: SOLN, TID-Before Meals, PRN Blood Glucose Results, Start date: 12/22/11 9:53:00, Duration: 30 day, Stop date: 01/21/12 9:52:00 normal saline 0.9% 1,000 mL, Rate: 100 ml/hr, Infuse 12/22/2011 12/24/2011 Discontinued IV 1,000 mL over: 10 hr, Route: IV, Dosing Weight 75 kg, Total Volume: 1,000, Start date: 12/22/11 7:24:00, Duration: 30 day, Stop date: 01/21/12 7:23:00 Benicar 20 mg, 1 tab, Route: PO, Drug form: 12/23/2011 12/24/2011 Discontinued TAB, Daily, Start date: 12/23/11 9:00:00, Duration: 30 day, Stop date: 01/21/12 9:00:00 Lexapro 10 mg, 1 tab, Route: PO, Drug form: 12/23/2011 12/24/2011 Discontinued TAB, Daily, Start date: 12/23/11 9:00:00, Duration: 30 day, Stop date: 01/21/12 9:00:00 Lipitor 80 mg, 2 tab, Route: PO, Drug form: 12/22/2011 12/24/2011 Discontinued TAB, Bedtime, Start date: 12/22/11 21:00:00, Duration: 30 day, Stop date: 01/20/12 21:00:00 cefepime 1 gm, Route: IVPB, ONCE, Priority: 12/21/2011 12/22/2011 Completed STAT, Start date: 12/21/11 23:07:00, Stop date: 12/21/11 23:07:00 atropine 0.5 mg, 5 mL, Route: IVP, Drug 12/22/2011 12/24/2011 Discontinued form: INJ, PRN, PRN Bradycardia, Start date: 12/22/11 4:37:00, Duration: 30 day, Stop date: 01/21/12 4:36:00 nitroglycerin 0.4 mg 0.4 mg, 1 tab, Route: SL, Drug 12/22/2011 12/24/2011 Discontinued sublingual tablet form: TAB, Q5Min, PRN Chest Pain, Start date: 12/22/11 4:37:00, Duration: 30 day, Stop date: 01/21/12 4:36:00 Dextrose 50% Syringe 12.5 gm, 25 mL, Route: IVP, Drug 12/22/2011 12/24/2011 Discontinued Form: INJ, PRN, PRN Blood Glucose Results, Start date: 12/22/11 4:09:00, Duration: 30 day, Stop date: 01/21/12 4:08:00 Dextrose 50% Syringe 25 gm, 50 mL, Route: IVP, Drug 12/22/2011 12/24/2011 Discontinued Form: INJ, PRN, PRN Blood Glucose Results, Start date: 12/22/11 4:09:00, Duration: 30 day, Stop date: 01/21/12 4:08:00 glucagon 1 mg, Route: IM, Drug form: 12/22/2011 12/24/2011 Discontinued PDR/INJ, PRN, PRN Blood Glucose Results, Start date: 12/22/11 4:09:00, Duration: 30 day, Stop date: 01/21/12 4:08:00 Pyridium 100 mg, 1 tab, Route: PO, Drug 12/23/2011 12/24/2011 Discontinued form: TAB, TID, Start date: 12/23/11 13:00:00, Duration: 30 day, Stop date: 01/22/12 9:00:00 NovoLog Mix 70/30 20 unit, 0.2 mL, Route: SUB-Q, Drug 12/23/2011 12/24/2011 Discontinued FlexPen form: INJ, BID-Before Meals, Start date: 12/23/11 16:30:00, Duration: 30 day, Stop date: 01/22/12 7:30:00 Cipro 250 mg oral 250 mg, 1 tab, PO, Q12H, 14 tab, 12/24/2011 12/31/2011 Ordered tablet Substitution Allowed Pyridium 100 mg oral 100 mg, 1 tab, PO, TID, 21 tab, 12/24/2011 Ordered tablet Substitution Allowed, TAB insulin 20 unit, Route: SUB-Q, Drug form: 12/23/2011 12/23/2011 Deleted isophane-insulin SUSP, BID-Before Meals, Start date: regular 70/30 12/23/11 16:30:00, Duration: 30 day, Stop date: 01/22/12 7:30:00 cefepime 1 gm, Route: IVPB, [id number], Start 12/22/2011 12/24/2011 Discontinued date: 12/22/11 13:00:00, Duration: 30 day, Stop date: 01/21/12 1:00:00 influenza virus 0.5 ml, Route: IM, Drug form: INJ, 08/24/2006 08/24/2006 Completed vaccine, inactivated Start date: 08/24/06 9:00:00, Stop date: 08/24/06 9:00:00 Immunizations Vaccine Date Status influenza virus vaccine, inactivated 08/24/2006 Auth (Verified) Vital Signs Most recent to oldest [Reference Range]: 1 2 3 Height 157.48 cm (12/21/2011 21:40:00) Temperature Oral [96.4-99.1 DegF] 99.0 DegF (12/24/2011 12:00:00) 98.3 DegF (12/24/2011 08:00:00) 98.3 DegF (12/24/2011 04:04:00) Systolic Blood Pressure [90-140 mmHg] 170 mmHg *HI* (12/24/2011 12:00:00) 162 mmHg *HI* (12/24/2011 08:00:00) 163 mmHg *HI* (12/24/2011 04:04:00) Diastolic Blood Pressure [60-90 mmHg] 71 mmHg (12/24/2011 12:00:00) 73 mmHg (12/24/2011 08:00:00) 75 mmHg (12/24/2011 04:04:00) Respiratory Rate [14-20 BRMIN] 18 BRMIN (12/24/2011 12:00:00) 18 BRMIN (12/24/2011 08:00:00) 18 BRMIN (12/24/2011 04:04:00) Peripheral Pulse Rate [60-100 bpm] 86 bpm (12/24/2011 12:00:00) 74 bpm (12/24/2011 08:00:00) 72 bpm (12/24/2011 04:04:00) Weight 75.000 kg (12/21/2011 21:40:00) Results BEDSIDE GLUCOSE TESTING Most recent to [facility] [Reference Range]: 1 2 3 Gluc POC Lifscn [70-99 mg/dL] 155 mg/dL 1 *HI* (12/24/2011 12:26:00) 186 mg/dL 2 *HI* (12/24/2011 08:14:00) 92 mg/dL 3 (12/24/2011 00:59:00) Comment1 Notify RN/MD *NA* (12/24/2011 12:26:00) Notify RN/MD *NA* (12/24/2011 08:14:00) Notify RN/MD *NA* (12/24/2011 00:59:00) 1Interpretive Data: Upper Reportable Limit: 200 mg/dL. 2Interpretive Data: Upper Reportable Limit: 200 mg/dL. 3Interpretive Data: Upper Reportable Limit: 200 mg/dL. URINALYSIS Most recent to [facility] [Reference Range]: 1 2 3 UA Turbidity [Clear] Slight Cloudy (12/23/2011 03:40:00) Turbid *ABN* (12/21/2011 21:44:00) UA Color [Yellow] Yellow *NA* (12/23/2011 03:40:00) Yellow *NA* (12/21/2011 21:44:00) UA pH [5.0-8.0] 6.5 (12/23/2011 03:40:00) 6.0 (12/21/2011 21:44:00) UA Spec Grav [<=1.030] 1.010 (12/23/2011 03:40:00) 1.015 (12/21/2011 21:44:00) UA Glucose [Negative mg/dL] >=1000 mg/dL *ABN* (12/23/2011 03:40:00) 250 mg/dL *ABN* (12/21/2011 21:44:00) UA Blood [Negative] Trace *ABN* (12/23/2011 03:40:00) Moderate *ABN* (12/21/2011 21:44:00) UA Ketones [Negative] Negative *NA* (12/23/2011 03:40:00) Negative *NA* (12/21/2011 21:44:00) UA Protein [Negative] Negative (12/23/2011 03:40:00) UA Protein [Negative mg/dL] 100 mg/dL *ABN* (12/21/2011 21:44:00) UA Urobilinogen [0.1-1.0 EU/dL] 0.2 EU/dL (12/23/2011 03:40:00) 0.2 EU/dL (12/21/2011 21:44:00) UA Bili [Negative] Negative *NA* (12/23/2011 03:40:00) Negative *NA* (12/21/2011 21:44:00) UA Leuk Est [Negative] Moderate *ABN* (12/23/2011 03:40:00) Large *ABN* (12/21/2011 21:44:00) UA Nitrite [Negative] Negative (12/23/2011 03:40:00) Positive *ABN* (12/21/2011 21:44:00) UA WBC [None Seen] Packed *ABN* (12/23/2011 03:40:00) Packed *ABN* (12/21/2011 21:44:00) UA RBC [0-2 /HPF] 6-10 /HPF *ABN* (12/23/2011 03:40:00) UA RBC [0-2] Packed *ABN* (12/21/2011 21:44:00) UA Bacteria [None Seen /HPF] Few /HPF (12/23/2011 03:40:00) Many /HPF (12/21/2011 21:44:00) UA Sq Epi [Few /LPF] Few /LPF (12/23/2011 03:40:00) Rare /LPF (12/21/2011 21:44:00) UA Amorph Carina [None Seen /HPF] Few /HPF *ABN* (12/21/2011 21:44:00) UA Mucus [None Seen /LPF] Few /LPF (12/23/2011 03:40:00) Moderate /LPF *ABN* (12/21/2011 21:44:00) CHEMISTRY Most recent to oldest [Reference Range]: 1 2 3 Sodium Lvl [135-145 mEq/L] 142 mEq/L (12/24/2011 03:37:00) 140 mEq/L (12/23/2011 05:21:00) 138 mEq/L (12/22/2011 08:15:00) Potassium Lvl [3.5-5.1 mEq/L] 4.1 mEq/L (12/24/2011 03:37:00) 4.3 mEq/L (12/23/2011 05:21:00) 4.0 mEq/L (12/22/2011 08:15:00) Chloride Lvl [95-109 mEq/L] 109 mEq/L (12/24/2011 03:37:00) 107 mEq/L (12/23/2011 05:21:00) 104 mEq/L (12/22/2011 08:15:00) CO2 [24-32 mEq/L] 21 mEq/L *LOW* (12/24/2011 03:37:00) 22 mEq/L *LOW* (12/23/2011 05:21:00) 23 mEq/L *LOW* (12/22/2011 08:15:00) AGAP [10.0-20.0 mEq/L] 16.1 mEq/L (12/24/2011 03:37:00) 15.3 mEq/L (12/23/2011 05:21:00) 15.0 mEq/L (12/22/2011 08:15:00) Creatinine Lvl [0.5-1.4 mg/dL] 0.9 mg/dL (12/24/2011 03:37:00) 0.9 mg/dL (12/23/2011 05:21:00) 1.3 mg/dL (12/22/2011 08:15:00) BUN [7-22 mg/dL] 13 mg/dL (12/24/2011 03:37:00) 14 mg/dL (12/23/2011 05:21:00) 16 mg/dL (12/22/2011 08:15:00) B/C Ratio [6-25] 16 (12/22/2011 00:15:00) Glucose Lvl [70-99 mg/dL] 121 mg/dL 4 *HI* (12/24/2011 03:37:00) 251 mg/dL 5 *HI* (12/23/2011 05:21:00) 181 mg/dL 6 *HI* (12/22/2011 08:15:00) Total Protein [6.4-8.4 g/dL] 8.3 g/dL (12/22/2011 00:15:00) Albumin Lvl [3.5-5.0 g/dL] 3.5 g/dL (12/22/2011 00:15:00) Globulin [2.0-4.0 g/dL] 4.8 g/dL *HI* (12/22/2011 00:15:00) A/G Ratio [0.7-1.6] 0.7 (12/22/2011 00:15:00) Calcium Lvl [8.5-10.5 mg/dL] 8.2 mg/dL *LOW* (12/24/2011 03:37:00) 8.3 mg/dL *LOW* (12/23/2011 05:21:00) 8.8 mg/dL (12/22/2011 08:15:00) ALT [0-65 U/L] 35 U/L (12/22/2011 00:15:00) AST [0-37 U/L] 31 U/L (12/22/2011 00:15:00) Alk Phos [39-136 U/L] 65 U/L (12/22/2011 00:15:00) Bili Total [0.2-1.3 mg/dL] 0.7 mg/dL (12/22/2011 00:15:00) Total CK [12-191 U/L] 85 U/L (12/22/2011 00:15:00) CK MB [0.5-3.6 ng/mL] <0.5 ng/mL (12/22/2011 00:15:00) CK MB Index [0.0-2.5] <0.6 (12/22/2011 00:15:00) Troponin-I [0.00-0.40 ng/mL] <0.02 ng/mL (12/22/2011 00:15:00) Hgb A1C 8.0 % 7 *NA* (12/23/2011 05:21:00) 4Interpretive Data: Adult reference range values reflect the clinical guidelinesof the [place] [employer]. 5Interpretive Data: Adult reference range values reflect the clinical guidelinesof the [place] [employer]. 6Interpretive Data: Adult reference range values reflect the clinical guidelinesof the [place] [employer]. 7Interpretive Data: HbA1C% eAG(mg/dL) Interpretation 6.0 126 Very good control 6.5 140 Very good control 7.0 154 Good Control 7.5 169 Good Control 8.0 183 Marginal Control, take action to lower 8.5 197 Marginal Control, take action to lower 9.0 212 Poor Control, take action to lower 9.5 226 Poor Control, take action to lower10.0 240 Poor Control, take action to lower HEMATOLOGY Most recent to oldest [Reference Range]: 1 2 3 WBC [3.7-10.4 K/CMM] 8.3 K/CMM (12/24/2011 03:37:00) 7.5 K/CMM (12/23/2011 05:21:00) 7.3 K/CMM (12/22/2011 08:15:00) RBC [4.20-5.40 M/CMM] 3.33 M/CMM *LOW* (12/24/2011 03:37:00) 3.29 M/CMM *LOW* (12/23/2011 05:21:00) 3.63 M/CMM *LOW* (12/22/2011 08:15:00) Hgb [12.0-16.0 g/dL] 10.4 g/dL *LOW* (12/24/2011 03:37:00) 10.4 g/dL *LOW* (12/23/2011 05:21:00) 11.1 g/dL *LOW* (12/22/2011 08:15:00) Hct [36.0-48.0 %] 30.9 % *LOW* (12/24/2011 03:37:00) 30.6 % *LOW* (12/23/2011 05:21:00) 33.4 % *LOW* (12/22/2011 08:15:00) MCV [81.0-99.0 fL] 92.7 fL (12/24/2011 03:37:00) 93.1 fL (12/23/2011 05:21:00) 91.9 fL (12/22/2011 08:15:00) MCH [27.0-31.0 pg] 31.3 pg *HI* (12/24/2011 03:37:00) 31.7 pg *HI* (12/23/2011 05:21:00) 30.6 pg (12/22/2011 08:15:00) MCHC [32.0-36.0 g/dL] 33.7 g/dL (12/24/2011 03:37:00) 34.1 g/dL (12/23/2011 05:21:00) 33.3 g/dL (12/22/2011 08:15:00) RDW [11.5-14.5 %] 13.7 % (12/24/2011 03:37:00) 13.6 % (12/23/2011 05:21:00) 14.1 % (12/22/2011 08:15:00) Platelet [133-450 K/CMM] 189 K/CMM (12/24/2011 03:37:00) 178 K/CMM (12/23/2011 05:21:00) 176 K/CMM (12/22/2011 08:15:00) MPV [7.4-10.4 fL] 10.5 fL *HI* (12/24/2011 03:37:00) 9.5 fL (12/23/2011 05:21:00) 9.9 fL (12/22/2011 08:15:00) Segs [45.0-75.0 %] 60.6 % (12/24/2011 03:37:00) 55.6 % (12/23/2011 05:21:00) 54.9 % (12/22/2011 08:15:00) Lymphocytes [20.0-40.0 %] 26.1 % (12/24/2011 03:37:00) 25.2 % (12/23/2011 05:21:00) 21.9 % (12/22/2011 08:15:00) Monocytes [2.0-12.0 %] 10.0 % (12/24/2011 03:37:00) 15.4 % *HI* (12/23/2011 05:21:00) 19.5 % *HI* (12/22/2011 08:15:00) Eosinophils [0.0-4.0 %] 3.0 % (12/24/2011 03:37:00) 3.5 % (12/23/2011 05:21:00) 3.3 % (12/22/2011 08:15:00) Basophils [0.0-1.0 %] 0.3 % (12/24/2011 03:37:00) 0.3 % (12/23/2011 05:21:00) 0.4 % (12/22/2011 08:15:00) Segs-Bands # [1.5-8.1 K/CMM] 5.0 K/CMM (12/24/2011 03:37:00) 4.2 K/CMM (12/23/2011 05:21:00) 4.0 K/CMM (12/22/2011 08:15:00) Lymphocytes # [1.0-5.5 K/CMM] 2.2 K/CMM (12/24/2011 03:37:00) 1.9 K/CMM (12/23/2011 05:21:00) 1.6 K/CMM (12/22/2011 08:15:00) Monocytes # [0.0-0.8 K/CMM] 0.8 K/CMM (12/24/2011 03:37:00) 1.2 K/CMM *HI* (12/23/2011 05:21:00) 1.4 K/CMM *HI* (12/22/2011 08:15:00) Eosinophils # [0.0-0.5 K/CMM] 0.2 K/CMM (12/24/2011 03:37:00) 0.3 K/CMM (12/23/2011 05:21:00) 0.2 K/CMM (12/22/2011 08:15:00) Basophils # [0.0-0.2 K/CMM] 0.0 K/CMM (12/24/2011 03:37:00) 0.0 K/CMM (12/23/2011 05:21:00) 0.0 K/CMM (12/22/2011 08:15:00) RBC Morph Normal (12/22/2011 00:15:00) Plt Morph Normal (12/22/2011 00:15:00) Microbiology Reports PROCEDURE:Culture: Urine STATUS: Auth (Verified) BODY SITE: COLLECTED DATE/TIME: 12/23/2011 13:20:00 SOURCE: Urine, Clean Catch FREE TEXT SOURCE: FINAL REPORTS Final Report No Growth PRELIMINARY REPORTS Preliminary Report No Growth; Holding
--- OUTSIDE RECORDS SUMMARY | 2019-01-25 10:42 | XMS REPORT | Summary of Care ---
Author Author [facility] Organization [facility] Address Unknown Phone Unavailable Encounter [facility] [employer](GWYN) [id number] Date(s): 09/24/16 - 09/24/16 [facility] [address] [place] [address]- [facility] [phone] Discharge Diagnosis: Acute urinary retention Discharge Disposition: Home or Self Care Attending Physician: Dominguez Vela MD Vital Signs 1 2 3 Most recent to oldest [Reference Range]: 132/53 mmHg (09/24/16 8:10 AM) 166/68 mmHg *HI* (09/24/16 6:17 AM) 186/72 mmHg *HI* (09/24/16 5:47 AM) Blood Pressure [90-140/60-90 mmHg] 18 BRMIN (09/24/16 7:43 AM) 18 BRMIN (09/24/16 6:17 AM) 20 BRMIN (09/24/16 5:47 AM) Respiratory Rate [14-20 BRMIN] 81 bpm (09/24/16 8:10 AM) 88 bpm (09/24/16 7:43 AM) 87 bpm (09/24/16 6:17 AM) Peripheral Pulse Rate [60-100 bpm] 59.545 kg (09/24/16 5:47 AM) Weight Problem List Condition Effective Dates Status Health Status Informant 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) Depression(Confirmed Active ) Diabetes(Confirmed) Resolved Diabetes Active mellitus(Confirmed) HTN Resolved (hypertension)(Confi rmed) OA - Active Osteoarthritis(Confi rmed) UTI (urinary tract Resolved infection)(Confirmed ) Allergies, Adverse Reactions, Alerts Substance Reaction Severity Status Diflucan Active iodine topical Active Rocephin Active sulfa drugs Active Medications nitrofurantoin macrocrystals 100 mg oral capsule (Macrodantin) 100 mg=1 cap, PO, Q8H, X 7 day, # 21 cap, 0 Refill(s) Start Date: 09/24/16 Stop Date: 10/01/16 Status: Ordered Saline Flush 0.9% 10 mL, Route: IVP, Drug Form: INJ, Dosing Weight 59.545, kg, PRN, PRN Line Flush , Start date: 09/24/16 6:06:00 DIVING FISHER, Duration: 30 day, Stop date: 10/24/16 6:05:0 0 DIVING FISHER Notes: (Same as: BD Posiflush) Start Date: 09/24/16 Stop Date: 09/24/16 Status: Discontinued Ultram 50 mg oral tablet 1 - 2 tabs, PO, Q4-6H, PRN as needed for pain, # 16 tab, 0 Refill(s) Start Date: 09/24/16 Stop Date: 09/25/16 Status: Completed Results ELECTROLYTES Most recent to 1 oldest [Reference Range]: Sodium Lvl [135-145 139 mEq/L mEq/L] (09/24/16 6:20 AM) Potassium Lvl 3.8 mEq/L [3.5-5.1 mEq/L] (09/24/16 6:20 AM) Chloride Lvl [95-109 106 mEq/L mEq/L] (09/24/16 6:20 AM) CO2 [24-32 mEq/L] 24 mEq/L (09/24/16 6:20 AM) AGAP [10.0-20.0 12.8 mEq/L mEq/L] (09/24/16 6:20 AM) CHEM PANEL Most recent to 1 oldest [Reference Range]: Creatinine Lvl 0.93 mg/dL [0.50-1.40 mg/dL] (09/24/16 6:20 AM) eGFR 58 mL/min/1.73m2 1 *NA* (09/24/16 6:20 AM) BUN [7-22 mg/dL] 18 mg/dL (09/24/16 6:20 AM) B/C Ratio [6-25] 19 (09/24/16 6:20 AM) Glucose Lvl [70-99 184 mg/dL mg/dL] *HI* (09/24/16 6:20 AM) Total Protein 8.2 g/dL [6.4-8.4 g/dL] (09/24/16 6:20 AM) Albumin Lvl [3.5-5.0 3.5 g/dL g/dL] (09/24/16 6:20 AM) Globulin [2.7-4.2 4.7 g/dL g/dL] *HI* (09/24/16 6:20 AM) A/G Ratio [0.7-1.6] 0.7 (09/24/16 6:20 AM) Calcium Lvl 8.6 mg/dL [8.5-10.5 mg/dL] (09/24/16 6:20 AM) Magnesium Lvl 2.1 mg/dL [1.8-2.4 mg/dL] (09/24/16 6:20 AM) ALT [0-65 unit/L] 19 unit/L (09/24/16 6:20 AM) AST [0-37 unit/L] 12 unit/L (09/24/16 6:20 AM) Alk Phos [39-136 90 unit/L unit/L] (09/24/16 6:20 AM) Bili Total [0.2-1.3 0.3 mg/dL mg/dL] (09/24/16 6:20 AM) Lipase Lvl [73-393 82 unit/L unit/L] (09/24/16 6:20 AM) 1Result Comment: The eGFR is calculated [...] be mul tiplied by the estimated BMI. CARDIAC ENZYMES Most recent to 1 oldest [Reference Range]: Total CK [12-191 114 unit/L unit/L] (09/24/16 6:20 AM) CK MB [0.5-3.6 2.1 ng/mL ng/mL] (09/24/16 6:20 AM) CK MB Index 1.8 [0.0-2.5] (09/24/16 6:20 AM) Troponin-I <0.02 ng/mL [0.00-0.40 ng/mL] (09/24/16 6:20 AM) URINE AND STOOL Most recent to 1 oldest [Reference Range]: UA Turbidity [Clear] Clear (09/24/16 6:20 AM) UA Color [Yellow] Yellow *NA* (09/24/16 6:20 AM) UA pH [5.0-8.0] 5.5 (09/24/16 6:20 AM) UA Spec Grav 1.010 [<=1.030] (09/24/16 6:20 AM) UA Glucose [Negative 100 mg/dL mg/dL] *ABN* (09/24/16:20 AM) UA Blood [Negative] Moderate *ABN* (09/24/16 6:20 AM) UA Ketones Negative [Negative] *NA* (09/24/16 6:20 AM) UA Protein Trace [Negative] *ABN* (09/24/16 6:20 AM) UA Urobilinogen 0.2 EU/dL [0.1-1.0 EU/dL] (09/24/16 6:20 AM) UA Bili [Negative] Negative *NA* (09/24/16 6:20 AM) UA Leuk Est Small [Negative] *ABN* (09/24/16 6:20 AM) UA Nitrite Negative [Negative] (09/24/16 6:20 AM) UA WBC [None Seen 3-5 /HPF /HPF] (09/24/16 6:20 AM) UA RBC [0-2] None Seen (09/24/16 6:20 AM) UA Bacteria [None Occasional /HPF Seen /HPF] (09/24/16 6:20 AM) UA Sq Epi [Few /LPF] Rare /LPF (09/24/16 6:20 AM) HEMATOLOGY Most recent to 1 oldest [Reference Range]: WBC [3.7-10.4 K/CMM] 5.6 K/CMM (09/24/16 6:20 AM) RBC [4.20-5.40 3.69 M/CMM M/CMM] *LOW* (09/24/16:20 AM) Hgb [12.0-16.0 g/dL] 11.4 g/dL *LOW* (09/24/16:20 AM) Hct [36.0-48.0 %] 33.5 % *LOW* (09/24/16:20 AM) MCV [80.0-98.0 fL] 90.6 fL (09/24/16 6:20 AM) MCH [27.0-31.0 pg] 30.9 pg (09/24/16:20 AM) MCHC [32.0-36.0 34.1 g/dL g/dL] (09/24/16:20 AM) RDW [11.5-14.5 %] 13.4 % (09/24/16:20 AM) Platelet [133-450 188 K/CMM K/CMM] (09/24/16:20 AM) MPV [7.4-10.4 fL] 8.8 fL (09/24/16 6:20 AM) Segs [45.0-75.0 %] 69.7 % (09/24/16 6:20 AM) Lymphocytes 19.1 % [20.0-40.0 %] *LOW* (09/24/16:20 AM) Monocytes [2.0-12.0 9.6 % %] (09/24/16 6:20 AM) Eosinophils [0.0-4.0 1.2 % %] (09/24/16 6:20 AM) Basophils [0.0-1.0 0.4 % %] (09/24/16 6:20 AM) Segs-Bands # 3.9 K/CMM [1.5-8.1 K/CMM] (09/24/16 6:20 AM) Lymphocytes # 1.1 K/CMM [1.0-5.5 K/CMM] (09/24/16 6:20 AM) Monocytes # [0.0-0.8 0.5 K/CMM K/CMM] (09/24/16 6:20 AM) Eosinophils # 0.1 K/CMM [0.0-0.5 K/CMM] (09/24/16 6:20 AM) PT [12.0-14.7 12.6 seconds seconds] (09/24/16 6:20 AM) INR [0.85-1.17] 0.92 (09/24/16 6:20 AM) PTT [22.9-35.8 30.3 seconds seconds] (09/24/16 6:20 AM) Immunizations Given and Recorded Vaccine Date [...]
[2019-01-25] MEDS ORDERED: SODIUM CHLORIDE 0.9% 500ML 500 ML IV ONE (11:15)
[2019-01-25] MEDS ORDERED: ASPIRIN 81 MG CHEW TAB PO ONE (11:15)
[2019-01-25] MEDS ORDERED: ASPIRIN 325 MG TAB ONE (11:25)
[2019-01-25] MEDS ORDERED: SODIUM CHLORIDE 0.9% 1000ML 1,000 ML ONE (11:26)
[2019-01-25] MEDS ORDERED: ONDANSETRON HCL INJ 2MG/ML 2ML 2 MG/ML VIAL IV PRN (12:45)
[2019-01-25] MEDS ORDERED: SODIUM CHLORIDE FLUSH 10 ML SYR INJ PRN (12:45)
--- NOTE | 2019-01-25 12:47 | Diagnostic Imaging Report ---
EXAM: CXR 2 VIEW - HOPD, PA and lateral DATE: 01/25/2019 Time stamp on exam: 11:56 AM INDICATION: High blood pressure COMPARISON: None FINDINGS: LINES/TUBES: Sternotomy sutures and multiple mediastinal clips with carotid stent is present. LUNGS: No consolidations or edema. PLEURA: No effusions or pneumothorax. HEART AND MEDIASTINUM: Normal size and contour. BONES AND SOFT TISSUES: Degenerative changes of the spine and shoulders. IMPRESSION: No acute thoracic abnormality. Signed by: Dr. Jero Cabrera DO on 01/25/2019 12:43 PM
--- OUTSIDE RECORDS SUMMARY | 2019-01-25 12:57 | XMS REPORT | Clinical Summary ---
Author Author BAYLEE [facility] Organization [facility] Address Unknown Phone Unavailable Care Team Providers Care Gauntlet Pairer Name Role Phone Yazan Garay MD PCP [...] B HUMANA - MEDICARE MGD HUMANA xxxxxxxxx [facility] MEDICARE Contracted ADV MEDICAID MEDICAID xxxxxxxxx Medicaid [place]
--- OUTSIDE RECORDS SUMMARY | 2019-01-25 12:57 | XMS REPORT | Clinical Summary ---
Author Author [facility] Organization [facility] [facility] Address Unknown Phone Unavailable Care Team Providers Care Technical Services Rep Name Role Phone Ren Blanca MD PCP [...] mg by 0 tablet mouth nightly. Active [id number] Administer 3 10 mL 0 (CORTISPORIN) otic [...] Overview: feet Cataract 11/20/2015 Overview: Eye center [facility] Vitreous hemorrhage 11/20/2015 Overview: left eye Essential [...] more information, nathan [email or web address] contact: Eren Short [address] [place] [address]
[2019-01-25] MEDS ORDERED: IOPAMIDOL 370 MG/ML 200 ML INFUS..BTL INJ ONE (12:59)
--- NOTE | 2019-01-25 13:00 | NUR ---
PT RESTING, VITAL SIGNS STABLE. PT VOICES NO COMPLAINTS AT THIS TIME.
--- NOTE | 2019-01-25 13:08 | NUR ---
[facility] CALLED FOR TRANSPORT, ETA 45 MINUTES, PT AND FAMILY AWARE OF POC,
--- NOTE | 2019-01-25 13:15 | NUR ---
RECEIVED REPORT FROM TINY AT [facility]
--- NOTE | 2019-01-25 14:00 | NUR ---
DE JESUS CATH THAT IS IN PLACE IS PULLING AND VERY PAINFUL TO PT. PT STATED CATH WAS PLACED 2 WEEKS AGO. DE JESUS DC'D, CATHETER IN PLACE, PT TOLERATED WELL DE JESUS CATH CHANGED AT BEDSIDE, 16F DE JESUS INSERTED WITH 10CC BALLOON, DENISE CARE WITH STERILE TECHNIQUE USED, BAG HUNG BELOW BLADDER, DE JESUS DRAINING WELL. LINE SECURED TO LEG, PT TOLERATED WELL.
--- NOTE | 2019-01-25 14:05 | NUR ---
REPORT TO ANGEL GALAVIZ REPORT TO [facility] ALL QUESTIONS ANSWERED
--- NOTE | 2019-01-25 14:11 | NUR ---
PT ARRIVED ON UNIT VIA EMS STRETCHER. NO S/S OF DISTRESS. PT WAS ORIENTED TO CALL LIGHT AND ENVIRONMENT. PT HAS INDWELLING DE JESUS THAT WAS REPLACED 01/25/19 [facility] TO ADMISSION AT [facility]. PT HAS LEFT AC 22G IV SALINE LOCKED, ASYMPTOMATIC AND PATENT
[2019-01-25 15:14] VITALS: BP 191/81
[2019-01-25 15:29] LABS: CREATINE KINASE MB 2.9 ng/mL (0-5.0)
[2019-01-25 15:37] VITALS: BP 191/81
[2019-01-25] MEDS ORDERED: LOSARTAN POTAS100 MG PO (15:55)
[2019-01-25] MEDS ORDERED: amlodipine besylate PO (15:55)
[2019-01-25] MEDS ORDERED: losartan potassium PO (15:55)
[2019-01-25 16:03] VITALS: BP 191/81
[2019-01-25] MEDS: INSULIN REGULAR, HUMAN 100 UNIT/1 ML 3ML VIAL SQ SCH ×2 (17:00→20:29)
--- NOTE | 2019-01-25 19:30 | NUR ---
Rounding done & report received. Patient resting in bed, awake & alert. Respirations even & unlabored, no distress noted. Tele in place. IV to L AC, patent & no infiltration noted. Ibanez in place, draining clear yellow urine. Patient denies any CP or issues at this time. Call light within reach, side railsx2 raised & bed set to lowest position.
[2019-01-25 20:00] VITALS: BP 153/66
[2019-01-25] MEDS: TRIMETHOPRIM/SULFAMETHOXAZOLE 160-800 MG TAB PO SCH (20:28)
[2019-01-25] MEDS ORDERED: ACETAMINOPHEN 325 MG TAB PO PRN (20:30)
--- NOTE | 2019-01-25 20:31 | NUR ---
Patient c/o lower abdominal pain, informed MD, orders received & placed
--- NOTE | 2019-01-25 22:46 | NUR ---
Cardiology Consult Dictation# [id number]
[2019-01-26] VITALS (9 sets, daily range): BP systolic 117–191; BP diastolic 56–81
[2019-01-26 00:20] LABS: CREATINE KINASE MB 2.3 ng/mL (0-5.0)
--- NOTE | 2019-01-26 00:28 | Consultation ---
DATE OF CONSULTATION: 01/25/2019 Cardiology Consultation REASON FOR CONSULTATION: Chest pain. HISTORY OF PRESENT ILLNESS: This is an 83-year-old woman with history of coronary artery disease, status post 3-vessel CABG, hypertension, hyperlipidemia, and diabetes mellitus, who presents with complaints of chest pain. The patient reports she has been having diarrhea since Wednesday. She saw her PCP yesterday and she was noted to have elevation in her blood pressure. This morning, she went to see her eye doctor, who told her blood pressure remained elevated. She called her PCP, who instructed her to increase her antihypertensive therapy. This morning, she subsequently developed chest discomfort, which described as pressure such with nausea, but no shortness of breath or diaphoresis. She presented to the ER for further evaluation. She denies any edema, orthopnea, or PND. REVIEW OF SYSTEMS: Negative except as per HPI. PAST MEDICAL HISTORY: 1. Coronary artery disease, status post 3-vessel CABG. 2. Hypertension. 3. Hyperlipidemia. 4. Diabetes mellitus. PAST SURGICAL HISTORY: 1. Cholecystectomy. 2. Appendectomy. 3. Hysterectomy. ALLERGIES: PLEASE SEE EMR. MEDICATIONS: Please see medication list. SOCIAL HISTORY: Denies tobacco, alcohol, or illicit drugs. FAMILY HISTORY: Pertinent for brother with CABG. PHYSICAL EXAMINATION: VITAL SIGNS: Temperature 96.3 degrees, pulse 75, respiratory rate 20, blood pressure 191/81, oxygen saturation 99% on room air. GENERAL: Elderly woman, in no acute distress. Awake and alert. HEENT: Normocephalic, atraumatic. Pupils equal. No scleral icterus. NECK: Supple. No thyroid or cervical lymphadenopathy. No carotid bruits. LUNGS: Clear to auscultation bilaterally. CARDIOVASCULAR: Normal rate, regular rhythm. A 2/6 systolic murmur is noted. ABDOMEN: Soft, nontender. EXTREMITIES: No edema. NEUROLOGIC: Nonfocal exam. LABORATORY DATA: Troponin 0.010. Chest x-ray, no acute thoracic abnormality. IMPRESSION: 1. Chest pain. 2. Coronary artery disease, status post 3-vessel coronary artery bypass grafting. 3. Hypertension. 4. Hyperlipidemia. 5. Diabetes mellitus. RECOMMENDATIONS: Trend cardiac enzymes to rule out myocardial infarction. Obtain echocardiogram. Given risk factor, ischemic evaluation is warranted with nuclear stress test. Continue home cardiac medications. Check fasting lipid panel. Resume home antihypertensive therapy. Thank you for this consult. We will continue to follow. MD TAZ Tran/MARIE /[id number]
[2019-01-26 00:46] LABS: CHOL/HDL RATIO 3.1 (3.0-3.6)
[2019-01-26 05:46] LABS: BASOPHILS % 0.2 % (0.0-1.0); EOSINOPHILS # (AUTO) 0.1 (0.0-0.4); EOSINOPHILS % 2.2 % (0.0-6.0); HEMATOCRIT 30.3 % (34.2-44.1); HEMOGLOBIN 10.1 g/dL (12.0-16.0); LYMPHOCYTES # (AUTO) 1.5 (1.0-3.2); LYMPHOCYTES % 36.6 % (18.0-39.1); MEAN CORPUSCULAR HGB CONC 33.3 g/dL (31-35); MEAN CORPUSCULAR VOLUME 92.9 fL (81-99); MONOCYTES # (AUTO) 0.7 (0.2-0.8); MONOCYTES % 16.1 % (4.4-11.3); NEUTROPHILS # (AUTO) 1.9 (2.1-6.9); NEUTROPHILS % 44.7 % (38.7-80.0); PLATELET COUNT 163 x10e3/uL (140-360); RED BLOOD COUNT 3.26 x10e6/uL (3.6-5.1); RED CELL DISTRIBUTION WIDTH 13.8 % (11.7-14.4)
[2019-01-26 06:29] LABS: ALANINE AMINOTRANSFERASE 11 IU/L (0-55); ALBUMIN 3.2 g/dL (3.5-5.0); ALBUMIN/GLOBULIN RATIO 0.9 (0.8-2.0); ALKALINE PHOSPHATASE 56 IU/L (40-150); ANION GAP 8.5 mmol/L (8-16); BLOOD UREA NITROGEN 13 mg/dL (7-26); BUN/CREATININE RATIO 16 (6-25); CALCIUM 8.7 mg/dL (8.4-10.2); CARBON DIOXIDE 25 mmol/L (22-29); CHLORIDE 107 mmol/L (98-107); CREATININE, SERUM 0.81 mg/dL (0.57-1.11); EST GLOMERULAR FILTRATION RATE > 60 ML/MIN (60-); GLUCOSE 91 mg/dL (74-118); POTASSIUM 3.5 mmol/L (3.5-5.1); SODIUM 137 mmol/L (136-145)
--- NOTE | 2019-01-26 07:00 | NUR ---
RECEIVED AM REPORT FROM RN. PT IS RESTING IN BED, NO S/S OF DISTRESS. CALL LIGHT WITHIN REACH, BED IN LOWEST POSITION, SIDE RAILS UP
[2019-01-26] MEDS: INSULIN REGULAR, HUMAN 100 UNIT/1 ML 3ML VIAL SQ SCH ×4 (07:30→20:40)
[2019-01-26] MEDS: TRIMETHOPRIM/SULFAMETHOXAZOLE 160-800 MG TAB PO SCH ×2 (08:34→20:40)
[2019-01-26] MEDS: ASPIRIN 81 MG ENTERIC COATED PO SCH (08:34)
[2019-01-26] MEDS: LOSARTAN POTASSIUM 100 MG TAB PO SCH (08:34)
--- NOTE | 2019-01-26 10:32 | NUR ---
H&P cc: cp HPI: 83yoF, PCP??, developed CP. Labs ordered, cardiology consulted and pt taken to stress test. PMH: HTN, HLD PHSx: unknown Allergies; see emr Fh/SH; unknown Meds; see MAR ROS: unobtainable v/s; revd PE: Deferred- pt in procedure labs/med revd A/P: 83yoF Atypical CP Moderate anemia Hyperglycemia HTN PLAN antiHTN Add statin/asa stress test pending; lovenox/pepcid dispo: f/u stress negative Miguel Lowery MD, PhD.
[2019-01-26] MEDS ORDERED: REGADENOSON 0.4 MG/5 ML SYR IV ONE (10:36)
--- NOTE | 2019-01-26 11:46 | Progress Note ---
DATE: 01/26/2019 Cardiology Progress Note SUBJECTIVE: The patient denies chest pain or shortness of breath. OBJECTIVE: VITAL SIGNS: Temperature 97.6 degrees, pulse 72, respiratory rate 18, blood pressure 143/67, and oxygen saturation 98% on room air. GENERAL: Awake, alert, in no acute distress. LUNGS: Clear to auscultation bilaterally. No wheezes or crackles. CARDIOVASCULAR: Normal rate, regular rhythm. A 2/6 systolic murmur. ABDOMEN: Soft and nontender. EXTREMITIES: No edema. CARDIAC MEDICATIONS: Losartan 100 mg p.o. daily, aspirin 81 mg p.o. daily. LABORATORY DATA: WBC 4.19, hemoglobin 10.1, hematocrit 30.3, platelets 163. Sodium 137, potassium 3.5, chloride 107, CO2 of 25, BUN 13, creatinine 0.81. Troponin 0.010. LDL 67. Telemetry; normal sinus rhythm. IMPRESSION: 1. Chest pain. 2. Coronary artery disease, status post 3-vessel coronary artery bypass grafting. 3. Urinary tract infection. 4. Hypertension. 5. Hyperlipidemia. 6. Diabetes mellitus. RECOMMENDATIONS: The patient is ruled out for myocardial infarction. Stress test today to evaluate for ischemia. Echocardiogram is pending. Continue current cardiac medications. Blood pressure is acceptable for age. Antibiotics per primary service. LDL is at goal. Further recommendations pending test results. Thank you for this consult. We will continue to follow. Michaela Aguilar MD ABS/MODL /[id number]
[2019-01-26] MEDS ORDERED: ONDANSETRON HCL 4 MG ORAL DISINTEGRATING TAB PO PRN (15:30)
[2019-01-26] MEDS: ENOXAPARIN SOD INJ 40 MG/0.4 ML SYR SC SCH (18:03)
--- NOTE | 2019-01-26 18:13 | History and Physical ---
SERVICE: Urology. HISTORY OF PRESENT ILLNESS: This is an 83-year-old patient who is known to our office where she is being treated by Dr. Ramirez. The patient does have a chronic indwelling Ibanez catheter and history of UTI. She was admitted to the hospital for chest pain. She is evaluated now by the marking devices assembler. PAST MEDICAL HISTORY: Significant for: 1. Hypertension. 2. UTI. 3. Chronic Ibanez. 4. Coronary artery disease. 5. History of CABG. 6. Hyperlipidemia. 7. Diabetes mellitus. 8. History of urinary retention. ALLERGIES: ALLERGY TO MEDICATIONS, SEE EMR. MEDICATIONS: See EMR. SOCIAL HISTORY: Denies using tobacco, alcohol, or illicit drugs. FAMILY HISTORY: Brother had coronary artery disease. REVIEW OF SYSTEMS: A 12 systems reviewed except what is related to chronic chest pain rest was negative. PHYSICAL EXAMINATION: GENERAL: She appears to be alert and oriented x3. Does not seem to be in acute distress at the present time. VITAL SIGNS: Pulse 74, respirations 18, and blood pressure 185/82. HEENT: Head symmetric. Eyes, . NECK: No JVD. CHEST: Clear. HEART: Regular. ABDOMEN: Soft. GENITOURINARY: External genitalia unremarkable trophic changes. EXTREMITIES: No edema. Move all limbs. NEUROLOGIC: Exam unremarkable. LABORATORY DATA: Hemoglobin 10.1, white count 4.15, and platelets 163,000. Potassium 3.5. Sodium 137, chloride 107, bicarb 25, and bilirubin 0.6. Urinalysis, . IMPRESSION: 1. Urinary tract infection. 2. Urinary retention. 3. Hypertension. 4. Coronary artery disease. 5. Hyperlipidemia. 6. Diabetes mellitus. 7. History of urinary retention. PLAN: Recommend to keep the Ibanez catheter in place and follow the patient. MD JERRELL King/MARIE /[id number]
--- NOTE | 2019-01-26 19:00 | NUR ---
Rounding done & report received. Patient laying in bed awake & alert, no distress noted. Patient denies any needs or issues at this time. Call light within reach & side railsx2 raised.
--- NOTE | 2019-01-26 20:00 | NUR ---
Blood glucose noted to be @ 56, patient is awake & alert, denies any issues at this time, orange juice & braden crackers provided.
[2019-01-26] MEDS: PRAVASTATIN 20 MG TAB PO SCH (20:40)
[2019-01-27] VITALS (8 sets, daily range): BP systolic 135–148; BP diastolic 58–69
--- NOTE | 2019-01-27 07:00 | NUR ---
BEDSIDE SHIFT REPORT RECEIVED FROM CATHERINE GALAVIZ. PT DENIES NEEDS AT THIS TIME.
[2019-01-27] MEDS: LOSARTAN POTASSIUM 100 MG TAB PO SCH (08:02)
[2019-01-27] MEDS: ASPIRIN 81 MG ENTERIC COATED PO SCH (08:02)
[2019-01-27] MEDS: TRIMETHOPRIM/SULFAMETHOXAZOLE 160-800 MG TAB PO SCH (08:02)
[2019-01-27] MEDS: INSULIN REGULAR, HUMAN 100 UNIT/1 ML 3ML VIAL SQ SCH ×4 (08:03→20:37)
--- NOTE | 2019-01-27 10:35 | NUR ---
EDUCATED ABOUT IMM, SIGNED, FILED IN CHART, WITH COPY LEFT WITH FAMILY AT BEDSIDE.
--- NOTE | 2019-01-27 10:57 | Myoview Stress Test ---
DATE OF STUDY: 01/25/2019 22:45:00 Stress Test - Treadmill ONLY PROCEDURE TITLE: Rest/stress single isotope SPECT imaging with pharmacologic stress and gated SPECT imaging. INDICATION: Chest pain. PROCEDURE IN DETAIL: Pharmacologic stress testing was performed with regadenoson per protocol. The heart rate was 77 beats per minute at rest increased to 98 beats per minute during the regadenoson infusion. The rest blood pressure was 130/73 and decreased to 100/61 mmHg, which is a normal response. The resting electrocardiogram demonstrated normal sinus rhythm. There were no ST-segment changes suggestive of myocardial ischemia. Myocardial perfusion imaging was performed at rest following the injection of 10 mCi of tetrofosmin. At peak pharmacologic effect, the patient was injected with 28 mCi of tetrofosmin. Gated post-stress tomographic imaging was performed. FINDINGS: The overall quality of study is good. Left ventricular cavity is noted to be normal size on the rest and stress studies. SPECT images demonstrate homogeneous tracer distribution throughout the myocardium. Gated SPECT imaging reveals normal myocardial thickening and wall motion. Left ventricular ejection fraction was calculated at 68%. IMPRESSION: Myocardial perfusion imaging is normal. Overall left ventricular systolic function was normal without regional wall motion abnormalities. Michaela Aguilar MD ABS/MODL /[id number]
[2019-01-27] MEDS ORDERED: POLYETHYLENE GLYCOL 3350 17 GM PACK PO PRN (13:30)
[2019-01-27] MEDS ORDERED: BISACODYL 10 MG SUPP PR ONE (13:45)
--- NOTE | 2019-01-27 14:23 | Progress Note ---
DATE: 01/27/2019 Cardiology Progress Note SUBJECTIVE: The patient denies shortness of breath. She notes occasional chest pressure. OBJECTIVE: VITAL SIGNS: Temperature 98.3 degrees, pulse 70, respiratory rate 18, blood pressure 148/69, oxygen saturation 95% on room air. GENERAL: Elderly woman, in no acute distress, awake and alert. LUNGS: Clear to auscultation bilaterally. No wheezes or crackles. CARDIOVASCULAR: Normal rate, regular rhythm. A 2/6 systolic murmur. ABDOMEN: Soft, nontender. EXTREMITIES: No edema. CARDIAC MEDICATIONS: Losartan 100 mg p.o. daily, aspirin 81 mg p.o. daily. LABORATORY DATA: WBC 4.15, hemoglobin 10.1, hematocrit 30.3, platelets 163. Sodium 137, potassium 3.5, chloride 107, CO2 of 25, BUN 13, creatinine 0.81. TELEMETRY: Normal sinus rhythm. IMPRESSION: 1. Chest pain. 2. Coronary artery disease status post 3-vessel CABG. 3. Qzjraily-eq-nuisrt aortic stenosis. 4. Urinary tract infection. 5. Hypertension. 6. Hyperlipidemia. 7. Diabetes mellitus. RECOMMENDATIONS: The patient ruled out for myocardial infarction with serial cardiac biomarkers. Stress test was without evidence of ischemia. Echocardiogram demonstrated normal LVEF, but zgrtdcka-xu-vqiuvm aortic stenosis was present. Recommend further evaluation as outpatient. Continue current cardiac medications. Blood pressure is acceptable for age. Antibiotics per primary service. LDL is at goal. Please have the patient follow with us in the office in two weeks to discuss TAVR. The patient indicates that she had prior conversations regarding needing correction on a possible valvular abnormality, but she does not have any details at this time. This can be for further addressed as an outpatient. Thank you for this consult. We will continue to follow. Michaela Aguilar MD ABS/MODL /[id number]
[2019-01-27] MEDS: ENOXAPARIN SOD INJ 40 MG/0.4 ML SYR SC SCH (16:59)
[2019-01-27] MEDS: DOCUSATE SODIUM 100 MG CAP PO SCH (16:59)
[2019-01-27] MEDS: PRAVASTATIN 20 MG TAB PO SCH (20:39)
[2019-01-27] MEDS: CEPHALEXIN 500 MG CAP PO SCH (20:39)
[2019-01-28 05:53] VITALS: BP 142/59
--- NOTE | 2019-01-28 07:00 | NUR ---
BEDSIDE SHIFT RECEIVED FROM [facility] TECHNICAL ARCHITECT RN. PT DENIES NEEDS AT THIS TIME.
[2019-01-28] MEDS: INSULIN REGULAR, HUMAN 100 UNIT/1 ML 3ML VIAL SQ SCH ×3 (07:30→16:30)
[2019-01-28] MEDS: DOCUSATE SODIUM 100 MG CAP PO SCH ×2 (08:24→16:05)
[2019-01-28] MEDS: LOSARTAN POTASSIUM 100 MG TAB PO SCH (08:25)
[2019-01-28] MEDS: ASPIRIN 81 MG ENTERIC COATED PO SCH (08:25)
[2019-01-28] MEDS: CEPHALEXIN 500 MG CAP PO SCH ×2 (08:25→16:05)
[2019-01-28 08:54] VITALS: BP 153/66
[2019-01-28 09:13] VITALS: BP 153/66
[2019-01-28 11:45] VITALS: BP 128/61
[2019-01-28] MEDS ORDERED: CEFDINIR300 MG PO (16:09)
[2019-01-28] MEDS ORDERED: ASPIR 8181 MG PO (16:10)
[2019-01-28] MEDS ORDERED: LIPITOR20 MG PO (16:10)
[2019-01-28] MEDS: ENOXAPARIN SOD INJ 40 MG/0.4 ML SYR SC SCH (17:00)
--- NOTE | 2019-01-28 17:15 | NUR ---
PATIENT DISCHARGED SAFELY HOME WITH FAMILY. IV REMOVED. TIP INTACT. NO BLEEDING NOTED. DRESSING APPLIED. PT DENIED FURTHER NEEDS.
[2019-01-28 17:28] VITALS: BP 176/78
--- NOTE | 2019-01-29 05:36 | Discharge Summary ---
FINAL DISCHARGE DIAGNOSES: 1. Catheter-associated urinary tract infection. 2. Atypical chest pain. 3. Type 2 diabetes. 4. Hypertension. 5. Three-vessel CABG. 6. Jisxvdpc-df-zgocmw aortic stenosis. CONSULTANTS: Urology, Cardiology. PHYSICAL EXAMINATION: VITAL SIGNS: Temperature is 97.9, pulse 71, respiratory rate is 18, blood pressure 128/61, pulse ox 98% on room air. LAB FINDINGS: Show white count 4.1, hemoglobin 10.1, hematocrit 30, platelets of 163. Chemistry, sodium is 137, potassium is 3.5, chloride is 107, bicarbonate was 25, anion gap of 8.5, BUN is 13, creatinine was 8.81, glucose 150, calcium 8.7, magnesium is 2. LFTs were normal. Troponins were negative. Albumin 3.2. LDL was 67. Microbiology, urine cultures positive for E coli sensitive to Omnicef, which will be the antibiotic for discharge. IMAGING STUDIES: Chest x-ray was negative. HOSPITAL COURSE: This is an 83-year-old female, who came into the ED with complaints of underlying chest pain. Cardiology was consulted. Cardiac enzymes were found to be negative. Cardiac stress test was found to be normal. The patient has xpjbwrwn-xp-yubhfv aortic stenosis seen on 2D echo in which she will require a TAVR evaluation. Per Cardiology's note, the patient can follow up in their office in 2 weeks to have that discussion and for arrangement. No further workup needed by Cardiology. The patient also had underlying urinary retention, requiring Urology consultation. The patient has had a Ibanez catheter for more than four years now. She developed a catheter-associated UTI with urine culture consistent with E coli and sensitive to the antibiotic IV that was given to her here. She will be discharged on oral Omnicef for 10 more additional days and advised to follow up with Urology as an outpatient in 1-2 weeks. On the day of discharge, vital signs stable, labs being stable. The patient was seen, evaluated, examined thoroughly on the day of discharge. No other complaints. The patient verbalized understanding and agrees to plan of care to follow up as an outpatient with the PCP in 1 week and Urology in two weeks, Cardiology in 2 weeks for TAVR explanation and discussion. MEDICATIONS: See med reconciliation form including Lipitor 10 mg one tab p.o. daily, aspirin 81 mg daily, Omnicef 300 mg capsules one tab p.o. b.i.d. x10 days. DISPOSITION: Home. CONDITION: Stable. DIET: Heart healthy. In the event of any worsening symptoms, the patient was advised to come back to the ED for further evaluation. Discharge summary took greater than 35 minutes. MD LEROY Elkins/MODSwati /[id number]
--- NOTE | 2019-01-30 03:27 | Progress Note ---
DATE: 01/27/2019 Medicine Progress Note I am covering for Dr. Miguel Lowery. SUBJECTIVE: The patient was admitted on 01/26/2019 and had some atypical chest pain and was evaluated by Cardiology. The patient had her Ibanez exchanged as well by Urology. The patient is doing well today with no other complaints. OBJECTIVE: VITAL SIGNS: Temperature 97.8, pulse 85, respiratory rate 17, blood pressure 142/64, and pulse ox 98% on room air. GENERAL: Not in acute distress. Alert and oriented x3. Cooperative on examination. HEENT: Head is normocephalic and atraumatic. Eyes; pupils are equal, round, and reactive to light bilaterally. Extraocular movements are intact bilaterally. NECK: Supple. Good range of motion. THROAT: No evidence of erythema or exudates in the posterior pharynx. Has poor dentition. PULMONARY: Clear to auscultation bilaterally. No wheezing, rales, or rhonchi. No crackles appreciated. CARDIOVASCULAR: Positive S1, S2. No murmurs, rubs, or gallops appreciated. ABDOMEN: Soft, nondistended, and nontender to palpation. Bowel sounds present. MUSCULOSKELETAL: Strength is 5/5 throughout. No evidence any muscle deficits on examination. NEUROLOGIC: Cranial nerves II through XII grossly intact. No evidence of any neurological deficits on exam. SKIN: Intact. Warm to touch. Good cap refill. PSYCHIATRIC: Normal affect and mood. EXTREMITIES: No edema. Good range of motion throughout. LAB FINDINGS: Show white count 4.1, hemoglobin 10.1, hematocrit 30, and platelets 163. Chemistry; sodium 137, potassium 3.5, chloride of 107, bicarbonate is 25, anion gap of 8.5, BUN is 13, creatinine is 0.81, and glucose 184. Troponins were negative. IMAGING STUDIES: Chest x-ray was found to be negative. Stress test results shows some normal stress test. Microbiology showed evidence of E coli pansensitive. IMPRESSION: 1. Chest pain, atypical in nature with negative cardiac stress test. 2. Urinary tract infection, E coli. 3. Hypertension. 4. History of coronary artery disease. 5. Hyperlipidemia. 6. Type 2 diabetes. 7. History of urinary. PLAN: At this time, continue with IV antibiotics, discharged on oral Omnicef. Cardiac stress test was found to be negative. The patient continued with the Ibanez. Cleared by discharge per Urology. Also been cleared by cardiac discharge. The patient is not interested in leaving today, reports that she is not ready. We will give her some stool softeners. She could possibly be discharged home later today and she is ready to go based on the chart review. MD LEROY Elkins/MARIE /[id number]
== END 2019-01-28 17:20 | disposition home or self-care (01) ==
LOC: FSED 10:38 → ERHOLD 12:50 → MED/SURG2 14:29
PROVIDERS: ADMIT Internal Medicine; ATTEND Internal Medicine
DX: T83.518A Infection and inflammatory reaction due to other urinary catheter, initial encounter (principal); R07.89 Other chest pain; E11.9 Type 2 diabetes mellitus without complications; I25.10 Atherosclerotic heart disease of native coronary artery without angina pectoris; Z95.1 Presence of aortocoronary bypass graft; I35.0 Nonrheumatic aortic (valve) stenosis; B96.20 Unspecified Escherichia coli [E. coli] as the cause of diseases classified elsewhere
CPT/HCPCS: 36415 ×4; 51700; 71046; 78452; 80053 ×2; 80061; 81003; 82550 ×2; 82553 ×2; 82948 ×4; 83036; 83735; 83880; 84484 ×2; 85025 ×2; 87086; 87186; 93005 ×2; 93017; 93306; 96372; 99284; A9502; G0378 ×4; J1650 ×2; J1817; J2405; J2785; J7030; J7040; Q9967

== ENCOUNTER → 2019-02-23 | Day surgery (SDC) | payer MEDICARE ==
[2019-02-22 14:17] LABS: BASOPHILS % 0.4 % (0.0-1.0); EOSINOPHILS # (AUTO) 0.1 (0.0-0.4); EOSINOPHILS % 1.7 % (0.0-6.0); HEMATOCRIT 33.3 % (34.2-44.1); HEMOGLOBIN 11.1 g/dL (12.0-16.0); LYMPHOCYTES # (AUTO) 2.2 (1.0-3.2); LYMPHOCYTES % 40.1 % (18.0-39.1); MEAN CORPUSCULAR HEMOGLOBIN 31.1 pg (28-32); MEAN CORPUSCULAR HGB CONC 33.3 g/dL (31-35); MEAN CORPUSCULAR VOLUME 93.3 fL (81-99); MONOCYTES # (AUTO) 0.8 (0.2-0.8); MONOCYTES % 14.1 % (4.4-11.3); NEUTROPHILS # (AUTO) 2.4 (2.1-6.9); NEUTROPHILS % 43.7 % (38.7-80.0); PLATELET COUNT 173 x10e3/uL (140-360); RED BLOOD COUNT 3.57 x10e6/uL (3.6-5.1); RED CELL DISTRIBUTION WIDTH 13.4 % (11.7-14.4)
[2019-02-22 14:28] LABS: INR 0.93
[2019-02-22 14:37] LABS: ALANINE AMINOTRANSFERASE 10 IU/L (0-55); ALBUMIN 3.8 g/dL (3.5-5.0); ALBUMIN/GLOBULIN RATIO 0.8 (0.8-2.0); ALKALINE PHOSPHATASE 78 IU/L (40-150); ANION GAP 11.1 mmol/L (8-16); BLOOD UREA NITROGEN 23 mg/dL (7-26); BUN/CREATININE RATIO 27 (6-25); CALCIUM 9.9 mg/dL (8.4-10.2); CARBON DIOXIDE 27 mmol/L (22-29); CHLORIDE 104 mmol/L (98-107); CREATININE, SERUM 0.85 mg/dL (0.57-1.11); EST GLOMERULAR FILTRATION RATE > 60 ML/MIN (60-); GLUCOSE 67 mg/dL (74-118); POTASSIUM 4.1 mmol/L (3.5-5.1); SODIUM 138 mmol/L (136-145)
--- NOTE | 2019-02-22 16:00 | NUR ---
[address] Freeman ,NO orders received,posted labs to chart. Will procedure with NEO in am 930 scheduled time. ds/rn
[~2019-02-23] MED LIST: ASPIR 8181 MG PO; BENZOCAINE 20% SPR 60 ML CAN ONE; CEFDINIR300 MG PO; LIDOCAINE HCL 2% LOCAL INJ 5 ML SDV VIAL INJ ONE; LIPITOR20 MG PO; LOSARTAN POTAS100 MG PO; NOVOLOG MI100 UNIT/1 SC; PHENYLEPHRINE HCL 1% 10 MG/ML VIAL ONE; PROPOFOL IV EMULSION 10 MG/ML 20 ML VIAL ONE; SODIUM CHLORIDE 0.9% 1000ML 1,000 ML ONE; amlodipine besylate PO; losartan potassium PO
--- OUTSIDE RECORDS SUMMARY | 2019-02-23 07:58 | XMS REPORT | Clinical Summary ---
Author Author [facility] Address Unknown Phone Unavailable Care Team Providers Care Leather Coverer Name Role Phone Ren Blanca MD PCP [...] mg by 0 tablet mouth nightly. Active ezqmybks-ocuzbqxee-ZX Administer 3 10 mL 0 (CORTISPORIN) otic [...] Overview: feet Cataract 11/20/2015 Overview: Eye center [facility] Vitreous hemorrhage 11/20/2015 Overview: left eye Essential [...] 03/16/2019 05/23/2015, 05/23/2015 Results Not on fileafter 02/22/2018 Insurance Type Payer Benefit Subscriber ID Effective Phone Address Plan / Dates Group Medicare MEDICARE MEDICARE xxxxxxxxxx 2000- JAS[place], PART A AND Present [place] B HMO AETNA AETNA xxxxxxxxxx 2005- HMO,POS,EP Present O, [facility] Advance Directives Patient has advance care planning documents on file. For more information, nathan mcgregor contact: Eren Short [address] [place] [address]
--- OUTSIDE RECORDS SUMMARY | 2019-02-23 07:58 | XMS REPORT | Clinical Summary ---
Author Author [facility] Organization [facility] Address Unknown Phone Unavailable Care Team Providers Care Party Plan Sales Director Name Role Phone Yazan Garay MD PCP [...] INFLUENZA VACCINE 05/16/2018 Results Not on fileafter 02/22/2018 Insurance Payer Benefit Subscriber ID Type Phone Address Plan / Group MEDICARE MEDICARE A xxxxxxxxxx Medicare B HUMANA - MEDICARE MGD HUMANA xxxxxxxxx [facility] MEDICARE Contracted ADV MEDICAID MEDICAID xxxxxxxxx Medicaid OF [place]
--- OUTSIDE RECORDS SUMMARY | 2019-02-23 07:59 | XMS REPORT | Continuity of Care Document ---
Author Author [employer] Organization [facility] [employer] Address Unknown Phone Unavailable Care Team Providers Care Traveling Engineer Name Role Phone [facility] [employer] Unavailable Unavailable Problems Problem Status Onset Date Classification Date Reported Comments Source DX: R33.9=RETENTION OF URINE, UNSPECIFIE Active 12/31/2016 [facility] Discharge Diagnosis: Acute urinary retention 10/02/2016 10/05/2016 [facility] URINARY SYMPTOMS Active 10/02/2016 [facility] Discharge Diagnosis: Acute lower urinary tract infection 09/29/2016 10/02/2016 [facility] LOWER PAIN Active 09/29/2016 [facility] UNABLE TO URINE/PAIN IN ANUS Active 09/24/2016 [facility] Discharge Diagnosis: Accidental fall 05/22/2016 05/25/2016 [facility] Discharge Diagnosis: Broken rib 05/22/2016 05/25/2016 [facility] Discharge Diagnosis: Broken clavicle 05/22/2016 05/25/2016 [facility] SHOULDER PAIN Active 05/22/2016 [facility] Z12.31 - ENCNTR SCREEN MAMMOGRAM FOR MA Active 05/13/2016 [facility] [place] UROSEPSIS Active 12/21/2011 [facility] ABD PAIN Active 12/21/2011 [facility] UROSEPSIS, CYSTITIS Active 12/21/2011 [facility] HTN - Hypertension Inactive Problem 12/26/2011 [facility] OA - Osteoarthritis Active Problem 12/26/2011 [facility] 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 Active Problem 09/17/2012 [facility] Bernice,[facility] Depression Active Problem 09/17/2012 [facility] Bernice,[facility] Diabetes mellitus Active Problem 09/17/2012 [facility] Bernice,[facility] HTN - Hypertension Inactive Problem 09/17/2012 [facility] OA - Osteoarthritis Active Problem 09/17/2012 [facility] 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 Active Problem 10/21/2018 [facility] [place] Depression Active Problem 10/21/2018 [facility] [place] Diabetes mellitus Active Problem 10/21/2018 [facility] OA - Osteoarthritis Active Problem 10/21/2018 [facility], [facility] [place] Diabetes Active Problem 01/03/2017 [facility], [facility] [place] HTN (Confirmed) Active Problem 10/21/2018 [facility], [facility] [place] UTI (Confirmed) Active Problem 10/21/2018 [facility] [place] CYSTITIS NOS Active [facility] 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 [facility] Medications Medication Details Route Status Patient Instructions Ordering Provider Order Date Source Levofloxacin 500 MG Oral Tablet [Levaquin] 500 mg=1 tab, PO, Q24H, X 7 day, # 7 tab, 0 Refill(s) Active 09/29/2016 [facility] Levaquin 500 mg, 100 mL, Route: IVPB, Drug form: SOLN, ONCE, Dosing Weight 60, kg, 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 date: 09/29/16 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, Stop date: 09/29/16 9:08:00 CSTNotes: (Same as:Levaquin) Inactive 09/29/2016 [facility] tramadol hydrochloride 50 MG Oral Tablet [Ultram] 1 - 2 tabs, PO, Q4-6H, PRN as needed for pain, # 16 tab, 0 Refill(s) No Longer Active 09/24/2016 [facility] nitrofurantoin macrocrystals 100 mg oral capsule (Macrodantin) 100 mg=1 cap, PO, Q8H, X 7 day, # 21 cap, 0 Refill(s) Active 09/24/2016 [facility] Saline Flush 0.9% 10 mL, Route: IVP, Drug Form: INJ, Dosing Weight 59.545, kg, PRN, PRN Line Flush, Start date: 09/24/16 6:06:00 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, Duration: 30 day, Stop date: 10/24/16 6:05:00 CSTNotes: (Same as: BD Posiflush) Inactive 09/24/2016 [facility] tramadol hydrochloride 50 MG Oral Tablet [Ultram] 50 mg=1 tab, PO, Q4H, PRN pain, X 5 day, # 30 tab, 0 Refill(s) Active 05/22/2016 [facility] Cipro 250 mg oral tablet 250 mg, 1 tab, PO, Q12H, 14 tab, Substitution Allowed PO Active Stacy 12/24/2011 [facility] Pyridium 100 mg oral tablet 100 mg, 1 tab, PO, TID, 21 tab, Substitution Allowed, TAB PO Active Stacy 12/24/2011 [facility] NovoLog Mix 70/30 FlexPen 20 unit, 0.2 mL, Route: SUB-Q, Drug form: INJ, BID-Before Meals, Start date: 12/23/11 16:30:00, Duration: 30 day, Stop date: 01/22/12 7:30:00 SUB-Q No Longer Active Stacy 12/23/2011 [facility] insulin isophane-insulin regular 70/30 20 unit, Route: SUB-Q, Drug form: SUSP, BID-Before Meals, Start date: 12/23/11 16:30:00, Duration: 30 day, Stop date: 01/22/12 7:30:00 SUB-Q No Longer Active Stacy 12/23/2011 [facility] Pyridium 100 mg, 1 tab, Route: PO, Drug form: TAB, TID, Start date: 12/23/11 13:00:00, Duration: 30 day, Stop date: 01/22/12 9:00:00 PO No Longer Active Stacy 12/23/2011 [facility] Benicar 20 mg, 1 tab, Route: PO, Drug form: TAB, Daily, Start date: 12/23/11 9:00:00, Duration: 30 day, Stop date: 01/21/12 9:00:00 PO No Longer Active Stacy 12/23/2011 [facility] Lexapro 10 mg, 1 tab, Route: PO, Drug form: TAB, Daily, Start date: 12/23/11 9:00:00, Duration: 30 day, Stop date: 01/21/12 9:00:00 PO No Longer Active Stacy 12/23/2011 [facility] Lipitor 80 mg, 2 tab, Route: PO, Drug form: TAB, Bedtime, Start date: 12/22/11 21:00:00, Duration: 30 day, Stop date: 01/20/12 21:00:00 PO No Longer Active Stacy 12/23/2011 [facility] cefepime 1 gm, Route: IVPB, [id number], Start date: 12/22/11 13:00:00, Duration: 30 day, Stop date: 01/21/12 1:00:00 IVPB No Longer Active [facility] 12/22/2011 [facility] Dextrose 50% Syringe 12.5 gm, 25 mL, Route: IVP, Drug Form: INJ, PRN, PRN Blood Glucose Results, Start date: 12/22/11 9:53:00, Duration: 30 day, Stop date: 01/21/12 9:52:00 IVP No Longer Active [facility] 12/22/2011 [facility] glucagon 1 mg, Route: IM, Drug form: PDR/INJ, PRN, PRN Blood Glucose Results, Start date: 12/22/11 9:53:00, Duration: 30 day, Stop date: 01/21/12 9:52:00 IM No Longer Active [facility] 12/22/2011 [facility] insulin aspart 2 unit, 0.02 mL, Route: SUB-Q, Drug form: SOLN, Bedtime, PRN Blood Glucose Results, Start date: 12/22/11 9:53:00, Duration: 30 day, Stop date: 01/21/12 9:52:00 SUB-Q No Longer Active [facility] 12/22/2011 [facility] normal saline 0.9% IV 1,000 mL 1,000 mL, Rate: 100 ml/hr, Infuse over: 10 hr, Route: IV, Dosing Weight 75 kg, Total Volume: 1,000, Start date: 12/22/11 7:24:00, Duration: 30 day, Stop date: 01/21/12 7:23:00 IV No Longer Active [facility] 12/22/2011 [facility] atropine 0.5 mg, 5 mL, Route: IVP, Drug form: INJ, PRN, PRN Bradycardia, Start date: 12/22/11 4:37:00, Duration: 30 day, Stop date: 01/21/12 4:36:00 IVP No Longer Active [facility] 12/22/2011 [facility] nitroglycerin 0.4 mg sublingual tablet 0.4 mg, 1 tab, Route: SL, Drug form: TAB, Q5Min, PRN Chest Pain, Start date: 12/22/11 4:37:00, Duration: 30 day, Stop date: 06/07/12 4:36:00 SL No Longer Active Stacy 12/22/2011 [facility] Dextrose 50% Syringe 12.5 gm, 25 mL, Route: IVP, Drug Form: INJ, PRN, PRN Blood Glucose Results, Start date: 12/22/11 4:09:00, Duration: 30 day, Stop date: 01/21/12 4:08:00 IVP No Longer Active Stacy 12/22/2011 [facility] glucagon 1 mg, Route: IM, Drug form: PDR/INJ, PRN, PRN Blood Glucose Results, Start date: 12/22/11 4:09:00, Duration: 30 day, Stop date: 01/21/12 4:08:00 IM No Longer Active Stacy 12/22/2011 [facility] cefepime 1 gm, Route: IVPB, ONCE, Priority: STAT, Start date: 12/21/11 23:07:00, Stop date: 12/21/11 23:07:00 IVPB No Longer Active Nriagu 12/22/2011 [facility] influenza virus vaccine, inactivated 0.5 ml, Route: IM, Drug form: INJ, Start date: 08/24/06 9:00:00, Stop date: 08/24/06 9:00:00 IM No Longer Active Vaduganathan 08/24/2006 [facility] Allergies, Adverse Reactions, Alerts Substance Category Reaction Severity Reaction type Status Date Reported Comments Source Diflucan Assertion Drug allergy Active [facility] iodine topical Assertion Drug allergy Active [facility] Rocephin Assertion Drug allergy Active [facility] sulfa drugs Assertion Drug allergy Active [facility] Immunizations Immunization Date Given Site Status Last Updated Comments Source influenza virus vaccine, inactivated 08/24/2006 completed [facility] virus vaccine, inactivated 08/24/2006 Right deltoid completed [facility] [place] [facility] [place] Results Order Name Results Value Reference Range Date Interpretation Comments Source URINE AND STOOL UA Leuk Est Small *ABN* (10/02/16 2:50 PM) Negative 10/02/2016 [facility] URINE AND STOOL UA WBC 6-10 /HPF None Seen /HPF 10/02/2016 [facility] URINE AND STOOL UA RBC 0-2 /HPF 0 - 2 10/02/2016 [facility] URINE AND STOOL UA Bacteria Occasional /HPF None Seen /HPF 10/02/2016 [place] URINE AND STOOL UA Color Yellow *NA* (10/02/16 2:50 PM) Yellow 10/02/2016 [place] URINE AND STOOL UA Sq Epi Rare /LPF Few /LPF 10/02/2016 [place] URINE AND STOOL UA Blood Negative (10/02/16 2:50 PM) Negative 10/02/2016 [place] URINE AND STOOL UA Urobilinogen 0.2 0.1 - 1.0 10/02/2016 [place] URINE AND STOOL UA Nitrite Negative (10/02/16 2:50 PM) Negative 10/02/2016 [place] URINE AND STOOL UA Bili Negative *NA* (10/02/16 2:50 PM) Negative 10/02/2016 [place] URINE AND STOOL UA Ketones Negative *NA* (10/02/16 2:50 PM) Negative 10/02/2016 [place] URINE AND STOOL UA Glucose Negative (10/02/16 2:50 PM) Negative 10/02/2016 [facility] URINE AND STOOL UA Spec Grav <=1.005 *NA* (10/02/16 2:50 PM) <=1.030 10/02/2016 [facility] URINE AND STOOL UA pH 6.0 5.0 - 8.0 10/02/2016 [facility] URINE AND STOOL UA Turbidity Clear (10/02/16 2:50 PM) Clear 10/02/2016 [facility] URINE AND STOOL UA Protein Negative (10/02/16 2:50 PM) Negative 10/02/2016 [facility] CHEM PANEL eGFR 54 09/29/2016 Result Comment: The eGFR is calculated [...] should be multiplied [facility] the [facility] Alk Phos 88 39 - 136 09/29/2016 [facility] CHEM PANEL BUN 14 7 - 22 [facility]/29/2016 [facility] Glucose Lvl 194 70 - 99 09/29/2016 [facility] Albumin Lvl 3.9 3.5 - 5.0 09/29/2016 [facility] Calcium Lvl 9.1 8.5 - 10.5 09/29/2016 [facility] CHEM PANEL Bili Total 0.7 0.2 - 1.3 09/29/2016 [facility] CHEM PANEL Total Protein 8.9 6.4 - 8.4 09/29/2016 [facility] CHEM PANEL ASPARTATE TRANSAMINASE 13 0 - 37 09/29/2016 [facility] Chloride Lvl 104 95 - 109 09/29/2016 [place] CHEM PANEL CO2 24 24 - 32 09/29/2016 [facility] Creatinine Lvl 0.98 0.50 - 1.40 09/29/2016 [facility] Sodium Lvl 138 135 - 145 09/29/2016 [facility] Potassium Lvl 4.5 3.5 - 5.1 09/29/2016 [facility] CHEM PANEL ALANINE AMINOTRANSFERASE 19 0 - 65 09/29/2016 [facility] CHEM PANEL Globulin 5.0 2.7 - 4.2 09/29/2016 [facility] CHEM PANEL AGAP 14.5 10.0 - 20.0 09/29/2016 [facility] CHEM PANEL B/C Ratio 14 6 - 25 09/29/2016 [facility] CHEM PANEL A/G Ratio 0.8 0.7 - 1.6 09/29/2016 [facility] HEMATOLOGY Eosinophils # 0.1 0.0 - 0.5 09/29/2016 [facility] HEMATOLOGY Basophils 0.4 0.0 - 1.0 09/29/2016 [facility] HEMATOLOGY Segs-Bands # 6.1 1.5 - 8.1 09/29/2016 [facility] HEMATOLOGY Monocytes 8.6 2.0 - 12.0 09/29/2016 [facility] HEMATOLOGY Eosinophils 0.8 0.0 - 4.0 09/29/2016 [facility] HEMATOLOGY Lymphocytes # 0.8 1.0 - 5.5 09/29/2016 [facility] HEMATOLOGY Segs 79.8 45.0 - 75.0 09/29/2016 [facility] HEMATOLOGY Lymphocytes 10.4 20.0 - 40.0 09/29/2016 [facility] HEMATOLOGY Monocytes # 0.7 0.0 - 0.8 09/29/2016 [facility] HEMATOLOGY RDW 13.5 11.5 - 14.5 09/29/2016 [facility] HEMATOLOGY Platelet 187 133 - 450 09/29/2016 [facility] HEMATOLOGY MPV 9.3 7.4 - 10.4 09/29/2016 [facility] HEMATOLOGY MCHC 34.1 32.0 - 36.0 09/29/2016 [facility] HEMATOLOGY RBC X 10x6 3.92 4.20 - 5.40 09/29/2016 [facility] HEMATOLOGY WBC X 10x3 7.7 3.7 - 10.4 09/29/2016 [facility] MCH 31.0 27.0 - 31.0 09/29/2016 [facility] MCV 91.0 80.0 - 98.0 09/29/2016 [facility] HEMATOLOGY Hct 35.7 36.0 - 48.0 09/29/2016 [facility] Hgb 12.1 12.0 - 16.0 09/29/2016 [facility] URINE AND STOOL UA RBC None Seen (09/29/16 8:37 AM) 0 - 2 09/29/2016 [facility] URINE AND STOOL UA WBC 3-5 /HPF None Seen /HPF 09/29/2016 [facility] URINE AND STOOL UA Ketones Trace *ABN* (09/29/16 8:37 AM) Negative 09/29/2016 [facility] URINE AND STOOL UA Bacteria None Seen (09/29/16 8:37 AM) None Seen 09/29/2016 [facility] URINE AND STOOL UA Sq Epi Rare /LPF Few /LPF 09/29/2016 [facility] URINE AND STOOL Micro? Performed (09/29/16 8:37 AM) 09/29/2016 [facility] URINE AND STOOL UA Leuk Est Small *ABN* (09/29/16 8:37 AM) Negative 09/29/2016 [facility] URINE AND STOOL UA Nitrite Negative (09/29/16 8:37 AM) Negative 09/29/2016 [facility] URINE AND STOOL UA Urobilinogen 0.2 0.1 - 1.0 09/29/2016 [place] URINE AND STOOL UA Blood Trace *ABN* (09/29/16 8:37 AM) Negative 09/29/2016 [place] URINE AND STOOL UA Bili Negative *NA* (09/29/16 8:37 AM) Negative 09/29/2016 [place] URINE AND STOOL UA Turbidity Clear (09/29/16 8:37 AM) Clear 09/29/2016 [place] URINE AND STOOL UA Color Yellow *NA* (09/29/16 8:37 AM) Yellow 09/29/2016 [place] URINE AND STOOL UA Glucose Negative (09/29/16 8:37 AM) Negative 09/29/2016 [place] URINE AND STOOL UA Protein Negative (09/29/16 8:37 AM) Negative 09/29/2016 [place] URINE AND STOOL UA pH 6.5 5.0 - 8.0 09/29/2016 [facility] URINE AND STOOL UA Spec Grav 1.010 <=1.030 09/29/2016 [facility] CARDIAC ENZYMES CK-MB INDEX 1.8 0.0 - 2.5 09/24/2016 [facility] CARDIAC ENZYMES Total CK 114 12 - 191 09/24/2016 [facility] CARDIAC ENZYMES Troponin-I <0.02 0.00 - 0.40 09/24/2016 [facility] CARDIAC ENZYMES CK MB 2.1 0.5 - 3.6 09/24/2016 [facility] CHEM PANEL Magnesium Lvl 2.1 1.8 - 2.4 09/24/2016 [facility] CHEM PANEL Lipase Lvl 82 73 - 393 09/24/2016 [facility] ELECTROLYTES CO2 24 24 - 32 09/24/2016 [facility] ELECTROLYTES Chloride Lvl 106 95 - 109 09/24/2016 [facility] ELECTROLYTES Potassium Lvl 3.8 3.5 - 5.1 09/24/2016 [facility] ELECTROLYTES Sodium Lvl 139 135 - 145 09/24/2016 [facility] ELECTROLYTES Creatinine Lvl 0.93 0.50 - 1.40 09/24/2016 [facility] ELECTROLYTES eGFR 58 09/24/2016 Result Comment: The eGFR is calculated [...] should be multiplied by the estimated BMI. [facility] ELECTROLYTES A/G Ratio 0.7 0.7 - 1.6 09/24/2016 [facility] ELECTROLYTES Globulin 4.7 2.7 - 4.2 09/24/2016 [facility] ELECTROLYTES ASPARTATE TRANSAMINASE 12 0 - 37 09/24/2016 [facility] ELECTROLYTES Total Protein 8.2 6.4 - 8.4 09/24/2016 [facility] ELECTROLYTES B/C Ratio 19 6 - 25 09/24/2016 [facility] ELECTROLYTES Bili Total 0.3 0.2 - 1.3 09/24/2016 [facility] ELECTROLYTES AGAP 12.8 10.0 - 20.0 09/24/2016 [facility] ELECTROLYTES Calcium Lvl 8.6 8.5 - 10.5 09/24/2016 [facility] ELECTROLYTES Alk Phos 90 39 - 136 09/24/2016 [facility] ELECTROLYTES Albumin Lvl 3.5 3.5 - 5.0 09/24/2016 [facility] ELECTROLYTES BUN 18 7 - 22 09/24/2016 [facility] ELECTROLYTES ALANINE AMINOTRANSFERASE 19 0 - 65 09/24/2016 [facility] ELECTROLYTES Glucose Lvl 184 70 - 99 09/24/2016 [facility] HEMATOLOGY Basophils 0.4 0.0 - 1.0 09/24/2016 [facility] HEMATOLOGY Eosinophils 1.2 0.0 - 4.0 09/24/2016 [facility] HEMATOLOGY Eosinophils # 0.1 0.0 - 0.5 09/24/2016 [facility] HEMATOLOGY Segs-Bands # 3.9 1.5 - 8.1 09/24/2016 [facility] HEMATOLOGY Lymphocytes # 1.1 1.0 - 5.5 09/24/2016 [facility] HEMATOLOGY Monocytes # 0.5 0.0 - 0.8 09/24/2016 [facility] HEMATOLOGY Segs 69.7 45.0 - 75.0 09/24/2016 [facility] Lymphocytes 19.1 20.0 - 40.0 09/24/2016 [facility] Monocytes 9.6 2.0 - 12.0 09/24/2016 [facility] aPTT 30.3 22.9 - 35.8 09/24/2016 [facility] INR 0.92 0.85 - 1.17 09/24/2016 [facility] HEMATOLOGY PROTIME 12.6 12.0 - 14.7 09/24/2016 [facility] WBC X 10x3 5.6 3.7 - 10.4 09/24/2016 [facility] HEMATOLOGY Hgb 11.4 12.0 - 16.0 09/24/2016 [facility] RBC X 10x6 3.69 4.20 - 5.40 09/24/2016 [facility] MCV 90.6 80.0 - 98.0 09/24/2016 [facility] MCH 30.9 27.0 - 31.0 09/24/2016 [facility] Hct 33.5 36.0 - 48.0 09/24/2016 [facility] MCHC 34.1 32.0 - 36.0 09/24/2016 [facility] MPV 8.8 7.4 - 10.4 09/24/2016 [facility] RDW 13.4 11.5 - 14.5 09/24/2016 [facility] Platelet 188 133 - 450 09/24/2016 [facility] URINE AND STOOL UA RBC None Seen (09/24/16 6:20 AM) 0 - 2 09/24/2016 [facility] URINE AND STOOL UA Bacteria Occasional /HPF None Seen /HPF 09/24/2016 [facility] URINE AND STOOL UA WBC 3-5 /HPF None Seen /HPF 09/24/2016 [facility] URINE AND STOOL UA Leuk Est Small *ABN* (09/24/16 6:20 AM) Negative 09/24/2016 [facility] URINE AND STOOL UA Sq Epi Rare /LPF Few /LPF 09/24/2016 [facility] URINE AND STOOL UA Spec Grav 1.010 <=1.030 09/24/2016 [facility] URINE AND STOOL UA Protein Trace *ABN* (09/24/16 6:20 AM) Negative 09/24/2016 [place] URINE AND STOOL UA pH 5.5 5.0 - 8.0 09/24/2016 [place] URINE AND STOOL UA Ketones Negative *NA* (09/24/16 6:20 AM) Negative 09/24/2016 [place] URINE AND STOOL UA Blood Moderate *ABN* (09/24/16 6:20 AM) Negative 09/24/2016 [place] URINE AND STOOL UA Bili Negative *NA* (09/24/16 6:20 AM) Negative 09/24/2016 [place] URINE AND STOOL UA Nitrite Negative (09/24/16 6:20 AM) Negative 09/24/2016 [place] URINE AND STOOL UA Urobilinogen 0.2 0.1 - 1.0 09/24/2016 [place] URINE AND STOOL UA Glucose 100 mg/dL Negative mg/dL 09/24/2016 [facility] URINE AND STOOL UA Color Yellow *NA* (09/24/16 6:20 AM) Yellow 09/24/2016 [facility] URINE AND STOOL UA Turbidity Clear (09/24/16 6:20 AM) Clear 09/24/2016 [facility] BEDSIDE GLUCOSE TESTING Gluc POC Lifscn 155 70 - 99 12/24/2011 [place] <sup>1</sup>Interpretive Data: Upper Reportable Limit: 200 mg/dL. [facility] BEDSIDE GLUCOSE TESTING Comment1 Notify [place] 12/24/2011 [facility] BEDSIDE GLUCOSE TESTING Gluc POC Lifscn 186 70 - 99 12/24/2011 [place] <sup>2</sup>Interpretive Data: Upper Reportable Limit: 200 mg/dL. [facility] BEDSIDE GLUCOSE TESTING Comment1 Notify [place] 12/24/2011 NA [facility] CHEMISTRY Calcium Lvl 8.2 8.5 - 10.5 12/24/2011 LOW [facility] CHEMISTRY AGAP 16.1 10.0 - 20.0 12/24/2011 Normal [facility] CHEMISTRY CO2 21 24 - 32 12/24/2011 LOW [facility] CHEMISTRY Chloride Lvl 109 95 - 109 12/24/2011 Normal [facility] CHEMISTRY Potassium Lvl 4.1 3.5 - 5.1 12/24/2011 Normal [facility] CHEMISTRY Sodium Lvl 142 135 - 145 12/24/2011 Normal [facility] CHEMISTRY Creatinine Lvl 0.9 0.5 - 1.4 12/24/2011 Normal [facility] CHEMISTRY BUN 13 7 - 22 12/24/2011 Normal [facility] CHEMISTRY Glucose Lvl 121 70 - 99 12/24/2011 [place] <sup>4</sup>Interpretive Data: Adult reference range values reflect the clinical guidelines of the [place] [employer]. [facility] HEMATOLOGY Basophils # 0.0 0.0 - 0.2 12/24/2011 Normal [facility] HEMATOLOGY Eosinophils # 0.2 0.0 - 0.5 12/24/2011 [facility] HEMATOLOGY Monocytes # 0.8 0.0 - 0.8 12/24/2011 Normal [facility] HEMATOLOGY Lymphocytes # 2.2 1.0 - 5.5 12/24/2011 Normal [facility] HEMATOLOGY Basophils 0.3 0.0 - 1.0 12/24/2011 Normal [facility] HEMATOLOGY Eosinophils 3.0 0.0 - 4.0 12/24/2011 Normal [facility] HEMATOLOGY Segs-Bands # 5.0 1.5 - 8.1 12/24/2011 Normal [facility] HEMATOLOGY Monocytes 10.0 2.0 - 12.0 12/24/2011 Normal [facility] HEMATOLOGY Lymphocytes 26.1 20.0 - 40.0 12/24/2011 Normal [facility] HEMATOLOGY Segs 60.6 45.0 - 75.0 12/24/2011 Normal [facility] HEMATOLOGY MPV 10.5 7.4 - 10.4 12/24/2011 [place] [facility] HEMATOLOGY RDW 13.7 11.5 - 14.5 12/24/2011 Normal [facility] HEMATOLOGY Platelet 189 133 - 450 12/24/2011 Normal [facility] HEMATOLOGY Hct 30.9 36.0 - 48.0 12/24/2011 LOW [facility] HEMATOLOGY MCV 92.7 81.0 - 99.0 12/24/2011 Normal [facility] HEMATOLOGY MCH 31.3 27.0 - 31.0 12/24/2011 [facility] HEMATOLOGY MCHC 33.7 32.0 - 36.0 12/24/2011 Normal [facility] HEMATOLOGY Hgb 10.4 12.0 - 16.0 12/24/2011 LOW [facility] HEMATOLOGY RBC 3.33 4.20 - 5.40 12/24/2011 LOW [facility] HEMATOLOGY WBC 8.3 3.7 - 10.4 12/24/2011 Normal [facility] BEDSIDE GLUCOSE TESTING Comment1 Notify RN/ 12/24/2011 NA [facility] BEDSIDE GLUCOSE TESTING Gluc POC Lifscn 92 70 - 99 12/24/2011 Normal <sup>3</sup>Interpretive Data: Upper Reportable Limit: 200 mg/dL. [facility] Microbiology Culture: Urine 12/23/2011 [facility] CHEMISTRY Hgb A1C 8.0 12/23/2011 NA <sup>7</sup>Interpretive Data: HbA1C% eAG(mg/dL) Interpretation 6.0 126 Very good control 6.5 140 Very good control 7.0 154 Good Control 7.5 169 Good Control 8.0 183 Marginal Control, take action to lower 8.5 197 Marginal Control, take action to lower 9.0 212 Poor Control, take action to lower 9.5 226 Poor Control, take action to lower 10.0 240 Poor Control, take action to lower [facility] CHEMISTRY Chloride Lvl 107 95 - 109 12/23/2011 Normal [facility] CHEMISTRY Sodium Lvl 140 135 - 145 12/23/2011 Normal [facility] CHEMISTRY Potassium Lvl 4.3 3.5 - 5.1 12/23/2011 Normal [facility] CHEMISTRY Calcium Lvl 8.3 8.5 - 10.5 12/23/2011 LOW [facility] CHEMISTRY AGAP 15.3 10.0 - 20.0 12/23/2011 Normal [facility] CHEMISTRY CO2 22 24 - 32 12/23/2011 LOW [facility] CHEMISTRY Creatinine Lvl 0.9 0.5 - 1.4 12/23/2011 Normal [facility] CHEMISTRY Glucose Lvl 251 70 - 99 12/23/2011 [place] <sup>5</sup>Interpretive Data: Adult reference range values reflect the clinical guidelines of the [place] [employer]. [facility] CHEMISTRY BUN 14 7 - 22 12/23/2011 Normal [facility] HEMATOLOGY Segs 55.6 45.0 - 75.0 12/23/2011 Normal [facility] HEMATOLOGY Lymphocytes 25.2 20.0 - 40.0 12/23/2011 Normal [facility] HEMATOLOGY Basophils 0.3 0.0 - 1.0 12/23/2011 Normal [facility] HEMATOLOGY Eosinophils 3.5 0.0 - 4.0 12/23/2011 Normal [facility] HEMATOLOGY Monocytes 15.4 2.0 - 12.0 12/23/2011 [facility] HEMATOLOGY Eosinophils # 0.3 0.0 - 0.5 12/23/2011 Normal [facility] HEMATOLOGY Monocytes # 1.2 0.0 - 0.8 12/23/2011 [facility] HEMATOLOGY Segs-Bands # 4.2 1.5 - 8.1 12/23/2011 Normal [facility] HEMATOLOGY Lymphocytes # 1.9 1.0 - 5.5 12/23/2011 Normal [facility] HEMATOLOGY Basophils # 0.0 0.0 - 0.2 12/23/2011 Normal [facility] HEMATOLOGY MPV 9.5 7.4 - 10.4 12/23/2011 Normal [facility] HEMATOLOGY Platelet 178 133 - 450 12/23/2011 Normal [facility] HEMATOLOGY RDW 13.6 11.5 - 14.5 12/23/2011 Normal [facility] HEMATOLOGY WBC 7.5 3.7 - 10.4 12/23/2011 Normal [facility] HEMATOLOGY RBC 3.29 4.20 - 5.40 12/23/2011 LOW [facility] HEMATOLOGY Hgb 10.4 12.0 - 16.0 12/23/2011 LOW [facility] HEMATOLOGY MCHC 34.1 32.0 - 36.0 12/23/2011 Normal [facility] HEMATOLOGY MCH 31.7 27.0 - 31.0 12/23/2011 HI [facility] HEMATOLOGY Hct 30.6 36.0 - 48.0 12/23/2011 LOW [facility] HEMATOLOGY MCV 93.1 81.0 - 99.0 12/23/2011 Normal [facility] URINALYSIS UA Nitrite Negative (12/23/2011 03:40:00) Negative 12/23/2011 Normal [facility] URINALYSIS UA Bili Negative *NA* (12/23/2011 03:40:00) Negative 12/23/2011 NA [facility] URINALYSIS UA Urobilinogen 0.2 0.1 - 1.0 12/23/2011 Normal [facility] URINALYSIS UA Blood Trace *ABN* (12/23/2011 03:40:00) Negative 12/23/2011 ABN [facility] URINALYSIS UA Ketones Negative *NA* (12/23/2011 03:40:00) Negative 12/23/2011 NA [facility] URINALYSIS UA Protein Negative (12/23/2011 03:40:00) Negative 12/23/2011 Normal [facility] URINALYSIS UA Glucose >=1000 mg/dL *ABN* (12/23/2011 03:40:00) Negative 12/23/2011 ABN [facility] URINALYSIS UA pH 6.5 5.0 - 8.0 12/23/2011 Normal [facility] URINALYSIS UA Turbidity Slight Cloudy (12/23/2011 03:40:00) Clear 12/23/2011 Normal [facility] URINALYSIS UA Spec Grav 1.010 <=1.030 12/23/2011 Normal [facility] URINALYSIS UA Color Yellow *NA* (12/23/2011 03:40:00) Yellow 12/23/2011 NA [facility] URINALYSIS UA Bacteria Few /HPF (12/23/2011 03:40:00) None Seen 12/23/2011 Normal [facility] URINALYSIS UA Sq Epi Few /LPF (12/23/2011 03:40:00) Few 12/23/2011 Normal [facility] URINALYSIS UA Mucus Few /LPF (12/23/2011 03:40:00) None Seen 12/23/2011 Normal [facility] URINALYSIS UA WBC Packed *ABN* (12/23/2011 03:40:00) None Seen 12/23/2011 ABN [facility] URINALYSIS UA Leuk Est Moderate *ABN* (12/23/2011 03:40:00) Negative 12/23/2011 ABN [facility] URINALYSIS UA RBC 6-10 /HPF *ABN* (12/23/2011 03:40:00) 0 - 2 12/23/2011 ABN [facility] CHEMISTRY BUN 16 7 - 22 12/22/2011 Normal [facility] CHEMISTRY Glucose Lvl 181 70 - 99 12/22/2011 [place] <sup>6</sup>Interpretive Data: Adult reference range values reflect the clinical guidelines of the [place] [employer]. [facility] CHEMISTRY Sodium Lvl 138 135 - 145 12/22/2011 Normal [facility] CHEMISTRY Creatinine Lvl 1.3 0.5 - 1.4 12/22/2011 Normal [facility] CHEMISTRY Potassium Lvl 4.0 3.5 - 5.1 12/22/2011 Normal [facility] CHEMISTRY Chloride Lvl 104 95 - 109 12/22/2011 Normal [facility] CHEMISTRY Calcium Lvl 8.8 8.5 - 10.5 12/22/2011 Normal [facility] CHEMISTRY CO2 23 24 - 32 12/22/2011 LOW [facility] CHEMISTRY AGAP 15.0 10.0 - 20.0 12/22/2011 Normal [facility] HEMATOLOGY Eosinophils # 0.2 0.0 - 0.5 12/22/2011 Normal [facility] HEMATOLOGY Monocytes # 1.4 0.0 - 0.8 12/22/2011 HI [facility] HEMATOLOGY Lymphocytes # 1.6 1.0 - 5.5 12/22/2011 Normal [facility] HEMATOLOGY Basophils # 0.0 0.0 - 0.2 12/22/2011 Normal [facility] HEMATOLOGY Basophils 0.4 0.0 - 1.0 12/22/2011 Normal [facility] HEMATOLOGY Segs-Bands # 4.0 1.5 - 8.1 12/22/2011 Normal [facility] HEMATOLOGY Lymphocytes 21.9 20.0 - 40.0 12/22/2011 Normal [facility] HEMATOLOGY Segs 54.9 45.0 - 75.0 12/22/2011 Normal [facility] HEMATOLOGY Eosinophils 3.3 0.0 - 4.0 12/22/2011 Normal [facility] HEMATOLOGY Monocytes 19.5 2.0 - 12.0 12/22/2011 HI [facility] HEMATOLOGY MPV 9.9 7.4 - 10.4 12/22/2011 Normal [facility] HEMATOLOGY Platelet 176 133 - 450 12/22/2011 Normal [facility] HEMATOLOGY MCH 30.6 27.0 - 31.0 12/22/2011 Normal [facility] HEMATOLOGY MCV 91.9 81.0 - 99.0 12/22/2011 Normal [facility] HEMATOLOGY Hct 33.4 36.0 - 48.0 12/22/2011 LOW [facility] HEMATOLOGY Hgb 11.1 12.0 - 16.0 12/22/2011 LOW [facility] HEMATOLOGY RBC 3.63 4.20 - 5.40 12/22/2011 LOW [facility] HEMATOLOGY WBC 7.3 3.7 - 10.4 12/22/2011 Normal [facility] HEMATOLOGY RDW 14.1 11.5 - 14.5 12/22/2011 Normal [facility] HEMATOLOGY MCHC 33.3 32.0 - 36.0 12/22/2011 Normal [facility] CHEMISTRY Total CK 85 12 - 191 12/22/2011 Normal [facility] CHEMISTRY CK MB <0.5 0.5 - 3.6 12/22/2011 Normal [facility] CHEMISTRY Troponin-I <0.02 0.00 - 0.40 12/22/2011 Normal [facility] CHEMISTRY Total Protein 8.3 6.4 - 8.4 12/22/2011 Normal [facility] CHEMISTRY ALT 35 0 - 65 12/22/2011 Normal [facility] CHEMISTRY A/G Ratio 0.7 0.7 - 1.6 12/22/2011 Normal [facility] CHEMISTRY Alk Phos 65 39 - 136 12/22/2011 Normal [facility] CHEMISTRY Bili Total 0.7 0.2 - 1.3 12/22/2011 Normal [facility] CHEMISTRY AST 31 0 - 37 12/22/2011 Normal [facility] CHEMISTRY Globulin 4.8 2.0 - 4.0 12/22/2011 HI [facility] CHEMISTRY Albumin Lvl 3.5 3.5 - 5.0 12/22/2011 Normal [facility] CHEMISTRY B/C Ratio 16 6 - 25 12/22/2011 Normal [facility] CHEMISTRY CK MB Index <0.6 0.0 - 2.5 12/22/2011 Normal [facility] HEMATOLOGY RBC Morph Normal (12/22/2011 00:15:00) 12/22/2011 Normal [facility] HEMATOLOGY Plt Morph Normal (12/22/2011 00:15:00) 12/22/2011 Normal [facility] URINALYSIS UA Leuk Est Large *ABN* (12/21/2011 21:44:00) Negative 12/22/2011 ABN [facility] URINALYSIS UA Nitrite Positive *ABN* (12/21/2011 21:44:00) Negative 12/22/2011 ABN [facility] URINALYSIS UA Amorph Carina Few /HPF *ABN* (12/21/2011 21:44:00) None Seen 12/22/2011 ABN [facility] URINALYSIS UA Ketones Negative *NA* (12/21/2011 21:44:00) Negative 12/22/2011 NA [facility] URINALYSIS UA pH 6.0 5.0 - 8.0 12/22/2011 Normal [facility] URINALYSIS UA Protein 100 mg/dL *ABN* (12/21/2011 21:44:00) Negative 12/22/2011 ABN [facility] URINALYSIS UA Urobilinogen 0.2 0.1 - 1.0 12/22/2011 Normal [facility] URINALYSIS UA Blood Moderate *ABN* (12/21/2011 21:44:00) Negative 12/22/2011 ABN [facility] URINALYSIS UA Bili Negative *NA* (12/21/2011 21:44:00) Negative 12/22/2011 NA [facility] URINALYSIS UA Glucose 250 mg/dL *ABN* (12/21/2011 21:44:00) Negative 12/22/2011 ABN [facility] URINALYSIS UA WBC Packed *ABN* (12/21/2011 21:44:00) None Seen 12/22/2011 ABN [facility] URINALYSIS UA RBC Packed *ABN* (12/21/2011 21:44:00) 0 - 2 12/22/2011 ABN [facility] URINALYSIS UA Sq Epi Rare /LPF (12/21/2011 21:44:00) Few 12/22/2011 Normal [facility] URINALYSIS UA Bacteria Many /HPF (12/21/2011 21:44:00) None Seen 12/22/2011 Normal [facility] URINALYSIS UA Mucus Moderate /LPF *ABN* (12/21/2011 21:44:00) None Seen 12/22/2011 ABN [facility] URINALYSIS UA Color Yellow *NA* (12/21/2011 21:44:00) Yellow 12/22/2011 NA [facility] URINALYSIS UA Turbidity Turbid *ABN* (12/21/2011 21:44:00) Clear 12/22/2011 ABN [facility] URINALYSIS UA Spec Grav 1.015 <=1.030 12/22/2011 Normal [facility] Pathology Reports No Data Provided for This Section Diagnostic Reports Report Value Date Source Chest 2 views DX XR CHEST 2 VIEWS HISTORY: - r05 cough COMPARISON: None. FINDINGS: The lungs are clear. The heart and vascular markings are normal. No pleural abnormality. The bones are intact. Mild atheromatous calcification within the aorta. Prior sternotomy. IMPRESSION: No active process. SL: [id number] 10/18/2018 [facility] [place] Abdomen/Pelvis wo IV contrast CT Patient Name: CHESTER FELIX : 1935; Age: 81 years y/o Female MR: [id number] * I. COMPUTED TOMOGRAPHY SCAN OF THE [...] urinary bladder. The bladder is decompressed. SL: [id number] 12/31/2016 [facility] Carotid artery Doppler bilat US EXAM: Ultrasound [...] arteries without hemodynamically significant stenosis seen. SL: [id number] 06/03/2016 [facility] [place] Bone Density [employer] MA - [...] services are provided by the [facility] Division of Diagnostic Imaging. This exam was dictated and interpreted by [id number] for ROSIO Francis. Mark Schmidt M.D., cm/penrad:06/04/2016 09:05:28 Vest Busheler: Lissa Guido [facility] 06/03/2016 [facility] [place] Digital Mammo Screen Edward MA w agnes [...] services are provided by the [facility] Division of Diagnostic Imaging. Mark Schmidt M.D., cm/penrad:06/04/2016 08:58:55 Vest Busheler: Lissa Guido [facility] This exam was dictated and interpreted by [id number] for ROSIO Francis. letter sent: Additional Imaging Mammogram BI-RADS: 0 Indeterminate 06/03/2016 [facility] [place] Chest 2 views DX Patient Name: CHESTER FELIX : 1935; Age: 80 years y/o Female MR: [id number] Study: Chest 2 views DX 05/22/2016 3:06 [...] rib fractures. No other acute finding. SL: [id number] 05/22/2016 [facility] Consultation Notes No Data Provided for This Section Discharge Summaries No Data Provided for This Section History and Physicals No Data Provided for This Section Vital Signs Vital Sign Value Date Comments Source Temperature Oral (F) 98.0 F 10/02/2016 [facility] Systolic (mm Hg) 141 10/02/2016 [facility] Diastolic (mm Hg) 80 10/02/2016 [facility] Heart Rate 77 10/02/2016 [facility] Respitory Rate 16 10/02/2016 [facility] Systolic (mm Hg) 181 10/02/2016 [facility] Diastolic (mm Hg) 84 10/02/2016 [facility] Heart Rate 89 10/02/2016 [facility] Respitory Rate 18 10/02/2016 [facility] Height 157.48 cm 10/02/2016 [facility] BMI Calculated 26.58 10/02/2016 [facility] Temperature Oral (F) 98.2 F 10/02/2016 [facility] Weight 65.909 10/02/2016 [facility] Systolic (mm Hg) 163 10/02/2016 [facility] Diastolic (mm Hg) 82 10/02/2016 [facility] Respitory Rate 18 10/02/2016 [facility] Heart Rate 73 10/02/2016 [facility] Heart Rate 78 09/29/2016 [facility] Systolic (mm Hg) 135 09/29/2016 [facility] Diastolic (mm Hg) 64 09/29/2016 [facility] Temperature Oral (F) 98.3 F 09/29/2016 [facility] Respitory Rate 16 09/29/2016 [facility] BMI Calculated 24.19 09/29/2016 [facility] Weight 60 09/29/2016 [facility] Temperature Oral (F) 98.4 F 09/29/2016 [facility] Respitory Rate 16 09/29/2016 [facility] Heart Rate 89 09/29/2016 [facility] Height 157.48 cm 09/29/2016 [facility] Systolic (mm Hg) 159 09/29/2016 [facility] Diastolic (mm Hg) 73 09/29/2016 [facility] Systolic (mm Hg) 132 09/24/2016 [facility] Diastolic (mm Hg) 53 09/24/2016 [facility] Heart Rate 81 09/24/2016 [facility] Heart Rate 88 09/24/2016 [facility] Respitory Rate 18 09/24/2016 [facility] Heart Rate 87 09/24/2016 [facility] Respitory Rate 18 09/24/2016 [facility] Systolic (mm Hg) 166 09/24/2016 [facility] Diastolic (mm Hg) 68 09/24/2016 [facility] Systolic (mm Hg) 186 09/24/2016 [facility] Diastolic (mm Hg) 72 09/24/2016 [facility] Respitory Rate 20 09/24/2016 [facility] Weight 59.545 09/24/2016 [facility] Respitory Rate 18 05/22/2016 [facility] Temperature Oral (F) 98 F 05/22/2016 [facility] Systolic (mm Hg) 161 05/22/2016 [facility] Diastolic (mm Hg) 78 05/22/2016 [facility] Heart Rate 82 05/22/2016 [facility] Weight 61.364 05/22/2016 [facility] BMI Calculated 24.74 05/22/2016 [facility] Height 157.48 cm 05/22/2016 [facility] Temperature Oral (F) 98.1 F 05/22/2016 [facility] Heart Rate 87 05/22/2016 [facility] Systolic (mm Hg) 180 05/22/2016 [facility] Diastolic (mm Hg) 81 05/22/2016 [facility] Respitory Rate 18 05/22/2016 [facility] Temperature Oral (F) 99.0 F 12/24/2011 [facility] Respitory Rate 18 12/24/2011 [facility] Heart Rate 86 12/24/2011 [facility] Diastolic (mm Hg) 71 12/24/2011 [facility] Systolic (mm Hg) 170 12/24/2011 [facility] Heart Rate 74 12/24/2011 [facility] Temperature Oral (F) 98.3 F 12/24/2011 [facility] Respitory Rate 18 12/24/2011 [facility] Systolic (mm Hg) 162 12/24/2011 [facility] Diastolic (mm Hg) 73 12/24/2011 [facility] Temperature Oral (F) 98.3 F 12/24/2011 [facility] Systolic (mm Hg) 163 12/24/2011 [facility] Respitory Rate 18 12/24/2011 [facility] Diastolic (mm Hg) 75 12/24/2011 [facility] Heart Rate 72 12/24/2011 [facility] Weight 75.000 12/22/2011 [facility] Height 157.48 cm 12/22/2011 [facility] Encounters Location Location Details Encounter Type Encounter Number Reason For Visit Attending Provider ADM Date DC Date Status Source [facility] Inpatient [id number] LEANN STACY 12/23/2011 12/24/2011 Discharged [facility] Emergency [id number] Ace ShafferRitu 05/22/2016 05/22/2016 [facility] [id number] Ren Blanca 06/03/2016 06/04/2016 [facility] Emergency [id number] Dominguez Weathers 09/24/2016 09/24/2016 [facility] Emergency [id number] Nadim Advent 09/29/2016 09/29/2016 [facility] Emergency [id number] Sherrill Reeves 10/02/2016 10/02/2016 [facility] [id number] Bebeto Harvey 12/31/2016 01/01/2017 [facility] Outpatient [id number] Bebeto Wes 12/31/2016 01/01/2017 [facility] [id number] Ren Blanca 10/18/2018 10/19/2018 [facility] Procedures Procedure Code Date Perfomer Comments Source Bypass [id number] [facility] Cholecystectomy [id number] [facility] Hysterectomy [id number] [facility] Bypass [id number] [facility] Cholecystectomy [id number] [facility] Hysterectomy [id number] [facility] Assessment and Plan No Data Provided for This Section Plan of Care No Data Provided for This Section Social History Social History Date Source Social History TypeResponse Smoking Status Reg Smoking Cessation Counseling No; Never smoker; Exposure to Tobacco Smoke None; Cigarette Smoking Last 365 Days No entered on: 10/02/16 10/02/2016 [facility] Social History TypeResponse Smoking Status Reg Smoking Cessation Counseling No; Never smoker; Exposure to Tobacco Smoke None; Cigarette Smoking Last 365 Days No 10/02/2016 [facility] Family History No Data Provided for This Section Advance Directives No Data Provided for This Section Functional Status No Data Provided for This Section
--- NOTE | 2019-02-23 08:30 | NUR ---
0830am Received pt in Rm#10. Prepped usual fashion for NEO DR Freeman .Allergy Iodine noted fall risk and allergy band to rt arm, Has [place] leg bag emptied 100cc clear urine and secured leg bag.Am glucose 145 finger stick with #20 Left ac placed x1 for procedure. Taped securely and labeled. Ox4 PEERLA. Move all ext unsteady gate Fall precautions taken. Cll light at bedside . Bed low position and breaks of bed locked.No gross issues pain pallor or dysrhythmia. Son at bedside. Report to Sy RN procedural RN for NEO Anesthesia notified and rounds made by anesthesia service. Denies c/o CP or SOB.Remains NPO. ds/rn
[2019-02-23 09:02] VITALS: BP 166/66
[2019-02-23 09:15] VITALS: BP 166/92
--- NOTE | 2019-02-23 11:09 | NUR ---
1109am Bedside report received from Fortunato GALAVIZ. in rm #10. Identiferx3. NEO stable ok to eat at 1pm.Alert oriented and appropriate, PERRLA, respirations even and unlabored to room air. Pulses x4 extremities equal and strong. Pedal pulses PT/DP x4.Cap fill brisk < 3 sec. Family at bedside. Report from Anesthesia Propanol 150 only. Left iv ac intact . No s/s infiltration. kvo Ns.No gross issues of pain pallor pressure or dysrhythmia.OK to dc when fully awake. Dr Freeman visited family and gave results. POC discussed and has copies. 1215 Pt remain stable fully back to baseline orientation, IV removed site stable s/o s/s infiltration No hematoma or oozing.Coban dressing. Pt dressed and escorted to car with family guard driver. Aware of dc orders and f/o care. RN escort denies c/o CP or SOB and no gross issues pain pallor pressure or dysrhythmia. ds/marely
--- NOTE | 2019-02-23 11:16 | NUR ---
Procedure Note- 1037- Patient brought to Room E-3. 1041- Physician arrives. 1042-Time out preformed with all participating staff. All agree. 1043-Hurricaine spray x2 administered to patient. 1046-Scope in. 1059-Bubble study done under direct observation. 1101-Scope out. 1107-Patient transferred to [facility] recovery bay #9 s/p NEO with anesthesia at bedside. Full report rec from anesthesiologist. VSS. Will continue to monitor.
[2019-02-23 12:00] VITALS: BP 150/60
== END | disposition home or self-care (01) ==
LOC: CATH LAB 07:54 → EDSTATUS 09:30
PROVIDERS: ATTEND Internal Medicine
DX: I35.0 Nonrheumatic aortic (valve) stenosis (principal); I25.118 Atherosclerotic heart disease of native coronary artery with other forms of angina pectoris; I10 Essential (primary) hypertension; E78.5 Hyperlipidemia, unspecified; E11.9 Type 2 diabetes mellitus without complications; Z91.041 Radiographic dye allergy status; Z01.812 Encounter for preprocedural laboratory examination; Z79.4 Long term (current) use of insulin; Z79.82 Long term (current) use of aspirin; Z82.49 Family history of ischemic heart disease and other diseases of the circulatory system
CPT/HCPCS: 36415 ×2; 80053; 82948; 85025; 85610; 93312; 93320; 93325; J2001; J2370; J2704; J7030; 93307